=== PATIENT | male | born 1935 | race Caucasian/White ===

== ENCOUNTER 2018-05-24 16:39 | Inpatient (IN) | payer OTHER ==
[~2018-05-24] VITALS: Ht 172.7 cm; Wt 77.6 kg
[2018-05-24 16:39] VITALS: BP 140/76
[~2018-05-24 16:39] MED LIST: ADVAIR 250-501 EACH INH; ASPIRIN EC325 M1 PO; AVELOX 400 MG400 M1 PO; FLEXERIL PO; LISINOPRIL20 MG PO; LORTAB 5-500 T1 EAC1 PO; LOVASTAT40 PO; METOPROLOL SUCC25 M1 PO; PERCOCET 5-3251 EACH PO
[2018-05-24 17:30] LABS: ANION GAP 12 mmol/L (7-16); BUN 58 mg/dL (7-18); CALCIUM 9.2 mg/dL (8.5-10.1); CHLORIDE 101 mmol/L (98-107); CO2 21 mmol/L (21-32); CREATININE 1.7 mg/dL (0.7-1.3); GLUCOSE 100 mg/dL (74-106); SODIUM 134 mmol/L (136-145)
[2018-05-24 17:40] LABS: SGOT 14 U/L (15-37); SGPT 26 U/L (30-65); TOTAL BILIRUBIN 0.4 mg/dL (<0.1-1.0); TOTAL PROTEIN 6.5 g/dL (6.4-8.2); TROPONIN-I <0.06 ng/mL (<0.06)
[2018-05-24 17:56] LABS: ABSOLUTE NEUTROPHILS 4.5 thou/uL (1.4-8.2); BASOPHILS 0.3 % (0.0-2.0); HEMATOCRIT 43.8 % (42.0-52.0); LYMPHOCYTES 17.5 % (24.0-44.0); MCH 31.3 pg (26.0-34.0); MCHC 34.2 g/dL (28.0-37.0); MCV 91.5 fL (80.0-100.0); MONOCYTES 0.8 % (1.0-8.0); PLATELET COUNT 125 thou/uL (150-400); POLYS 79.4 % (36.0-66.0); RBC 4.79 mil/uL (4.50-6.00); RDW 14.4 % (10.5-14.5); WBC 5.7 thou/uL (4.0-11.0)
[2018-05-24 21:03] VITALS: BP 123/70
[2018-05-24 21:20] VITALS: BP 143/83
--- NOTE | 2018-05-24 23:12 | NUR ---
PATIENT WAS A NEW ADMISSION TO THE UNIT THIS SHIFT. HE ARRIVED VIA CART FROM THE ER AND WAS ABLE TO AMBULATE TO BED WITHOUT INCIDENT. PATIENT IS ALERT AND ORIENTED AND ABLE TO CALL APPROPRIATELY FOR NEEDS AND PARTICIPATE IN THE ADMISSION PROCESS. NURSE TO COMPLETE ADMISSION AND INITIATE CARE PLAN.
[2018-05-24 23:55] VITALS: BP 135/85
[2018-05-25 04:06] LABS: HEMATOCRIT 36.6 % (42.0-52.0); HEMOGLOBIN 12.2 gm/dL (14.0-18.0); MCH 30.8 pg (26.0-34.0); MCHC 33.4 g/dL (28.0-37.0); MCV 92.1 fL (80.0-100.0); RBC 3.97 mil/uL (4.50-6.00); RDW 14.1 % (10.5-14.5)
[2018-05-25 04:10] LABS: CALCIUM 7.9 mg/dL (8.5-10.1); CREATININE 1.7 mg/dL (0.7-1.3); POTASSIUM 4.3 mmol/L (3.5-5.1)
[2018-05-25 05:15] VITALS: BP 130/81
[2018-05-25 08:00] VITALS: BP 133/65
[2018-05-25 09:04] VITALS: BP 133/65
--- NOTE | 2018-05-25 09:58 | NUR ---
ASSESSMENT: CM REVIEWED CHART AND MET WITH PATIENT AT THE BEDSIDE. PT IS ALERT AND ORIENTED X4. PT WAS ADMITTED WITH POSSIBLE GI BLEED. PT WAS RECENTLY DIAGNOSED WITH LUNG CA 04/28 AND IS ON CHEMO. PT REPORTS HE SEE DR. ELLIOTT AT [facility] FOR THIS. PT REPORTS HE LIVES IN A HOUSE WITH HIS . PT REPORTS HE IS VERY INDEPENDENT AND IS INDEPENDENT WITH ADLS AND AMBULATION. PT REPORTS THAT HE HAS ABOUT 7 STEPS TO ENTER THIS HOME WITH HANDRAILS ON EACH SIDE. PT REPORTS ABOUT ANOTHER 7 STEPS WITH HANDRAILS TO THE UPPER LEVEL AND SEVEN STEPS WITH HANDRAILS TO THE BASEMENT. PT REPORTS HE HAS NOT HAD HH IN THE PAST. PT REPORTS HE STILL DRIVES. CM DISCUSSED ROLE. PT DOES NOT ANTICIPATE HAVING ANY NEEDS AT DISCHARGE. GI HAS BEEN CONSULTED TO SEE PATIENT. CM WILL CONTINUE TO FOLLOW TO ASSIST NEEDED.
--- NOTE | 2018-05-25 11:55 | NUR ---
Patient left unit for EGD / flex sig around 1115.
[2018-05-25 13:17] VITALS: BP 118/60
--- NOTE | 2018-05-25 15:09 | NUR ---
Assumed care of patient at 0700. Vitals have been stable. Alert and oriented x4. Patient left for EGD / flex-sig today. Some bloody stools with tap water enema before procedure, but otherwise, no bleeding noted. EGD and flex-sig results as charted. Patient to start on IV Protonix BID and Carafate for ulcers. Patient reports feeling better when eating and drinking post - procedure. States burning pain is not as bad as before. Tolerated full liquid diet, will advance for dinner. Patient does report weakness, up with one assist. Fall precautions in place and calls appropriately. [place] per Dr. Melendez to transfer to senior suites. DC telemetry. Report given to RN and patient to transfer to room 224.
[2018-05-25 16:10] VITALS: BP 129/75
[2018-05-25 19:27] VITALS: BP 134/72
--- NOTE | 2018-05-26 03:03 | NUR ---
ASSUMED CARE AT START OF SHIFT PT SITTING UP IN BED , NO CONCERNS VOICED, DENIES PAIN , HAD BOWEL MOVEMENT WITHOUT BLOOD REPORTED. DISCUSSED PLAN OF CARE AND VERBALIZED UNDERTSANDING. RESTED WELL THROUGHOUT HOURLY ROUNDS . IV FLUIDS INFUSING WELL. WILL CONINTUE WITH CURRENT PLAN OF CARE.
[2018-05-26 07:28] VITALS: BP 126/78
[2018-05-26 08:42] LABS: HEMATOCRIT 33.3 % (42.0-52.0); HEMOGLOBIN 11.4 gm/dL (14.0-18.0); MCH 31.9 pg (26.0-34.0); MCHC 34.3 g/dL (28.0-37.0); MCV 93.1 fL (80.0-100.0); RBC 3.58 mil/uL (4.50-6.00); RDW 14.6 % (10.5-14.5); WBC 2.8 thou/uL (4.0-11.0)
[2018-05-26 09:18] LABS: FOLIC ACID 11.3 ng/mL (8.6-58.9)
--- NOTE | 2018-05-26 16:43 | NUR ---
ASSUMED CARE OF PATIENT AT 0715, PATIENT ALERT AND ORIENTED X 4. PATIENT UP AD BALJIT, HAS AMBULATED IN HALLWAY X 1. PATIENT DENIES PAIN. PATIENT HAS LEFT FOREARM IV WITH NS AT 100CC/HR. PATIENT DENIES NAUSEA, CLEAR LIQUID DIET, THIS RN CALLED DR SIMMONS TO ASK ABOUT DIET, PATIENT STATES HE IS HUNGRY, DR SIMMONS STATES KEEP ON CLEAR LIQUID DIET. PATIENT HAS EDEMA TO BILATERAL FEET. PATIENT HAS RIGHT PORT A CATH NOT ASSESSED, FAIRLY NEW PORT AREA, SLIGHT REDNESS TO SITE. WILL CONTINUE TO MONITOR.
[2018-05-26 19:35] VITALS: BP 149/96
--- NOTE | 2018-05-27 05:07 | NUR ---
PATIENT ALERT AND ORIENTED X4. UP ADLIB IN ROOM. C/O PAIN TO BILATERAL HIPS, MEDICATED WITH VICODIN X1 WITH GOOD RESULTS. IVF INFUSING W/O COMPLICATION. NO C/O N/V. LARGE BM AT SHIFT CHANGE WHICH WAS RECORDED. SMALL LOOSE STOOL DURING THE NIGHT. EDEMA REMAINS IN PATIENTS LOWER LEGS AND FEET. WILL MONITOR.
[2018-05-27 06:55] LABS: HEMOGLOBIN 11.5 gm/dL (14.0-18.0)
[2018-05-27 06:57] LABS: HEMATOCRIT 33.8 % (42.0-52.0); MCH 31.7 pg (26.0-34.0); MCHC 34.1 g/dL (28.0-37.0); RBC 3.63 mil/uL (4.50-6.00); RDW 14.5 % (10.5-14.5)
[2018-05-27 07:09] LABS: WBC 1.4 thou/uL (4.0-11.0)
[2018-05-27 09:05] VITALS: BP 149/81
--- NOTE | 2018-05-27 17:02 | NUR ---
ASSUMED CARE OF PATIENT AT 0715, PATIENT ALERT AND ORIENTED X 4. UP AD BALJIT, AMULATES IN HALLWAYS X 2 TODAY. PATIENT DENIES PAIN BUT C/O DISCOMFORT WITH THROAT, NOTIFIED DR SIMMONS RECEIVED ORDER FOR CEPACOL LOZENGES. PATIENT ALSO C/O PAIN AT PORT A CATH SITE RIGHT CHEST, CHEST XRAY DONE. PATIENT HAS LEFT AC IV IN PLACE, NS IV FLUIDS HAVE BEEN DISCONTINUED. PATIENT UPGRADED TO REGULAR DIET, NO C/O NAUSEA THIS SHIFT. PATIENT HAS SOME EDEMA TO BILATERL FEET/ANKLES 1+. PATIENT HAD A SMALL STOOL, NO BLOOD NOTED. PATIENT MAY DISCHARGE TOMORROW TO HOME PER DR SIMMONS. WILL CONTINUE TO MONITOR.
[2018-05-27 19:23] VITALS: BP 174/95
[2018-05-27 20:47] VITALS: BP 146/87
--- NOTE | 2018-05-28 03:44 | NUR ---
PATIENT ALERT AND ORIENTED X4. UP ADLIB IN ROOM. MEDICATED FOR BILATERAL HIP PAIN X1. C/O SORE THROAT, USING LOZENGES PRN. NO C/O ABDOMINAL DISCOMFORT. NO N/V. REDNESS TO PORTAL SITE, HOWEVER, NO DRAINAGE NOTED. PATIENT STATES THAT HE HAS "CAUGHT A COLD". ANXIOUS TO GO HOME. IV PATENT. RESULTS FROM CXR AVAILABLE. WILL CONTINUE TO MONITOR.
[2018-05-28 06:40] LABS: HEMOGLOBIN 11.6 gm/dL (14.0-18.0); MCH 30.5 pg (26.0-34.0)
[2018-05-28 06:42] LABS: HEMATOCRIT 34.8 % (42.0-52.0); MCHC 33.2 g/dL (28.0-37.0); MCV 91.9 fL (80.0-100.0); RBC 3.78 mil/uL (4.50-6.00); RDW 14.1 % (10.5-14.5)
[2018-05-28 07:26] LABS: WBC 1.2 thou/uL (4.0-11.0)
[2018-05-28 08:15] VITALS: BP 134/83
[2018-05-28] MEDS ORDERED: CARAFATE 1 GM TA1 G1 PO (08:51)
[2018-05-28] MEDS ORDERED: PROTONIX40 M1 PO (08:52)
[2018-05-28] MEDS ORDERED: LEVAQUIN 500 M500 M2 PO (09:00)
[2018-05-28 09:30] VITALS: BP 134/83
--- NOTE | 2018-05-28 10:58 | NUR ---
ASSUMED PT CARE AT 0700H. PT A&O X4. PT HAS NO S/S OF DISTRESS. PT HAS PORT-A-CATH TRANSPARENT DRG C/D/I FOR CHEMO ACCESS. PT STATES HAD BM TODAY. PT STATES WAS NORMAL. PT STATES NO RECTAL BLEEDING. PT TOLERATED MEDS AND MEALS. PARTICK FROM LAB CALLED ON CRITICAL. PHYSICIAN NOTIFIED. PER PHYSICIAN VISIT, NEW ORDERS TO DC PT HOME. PT CURRENTLY DC HOME WHEELED ON WHEELCHAIR WITH HELP FROM VOLUNTEER WITH ALL PERSONAL BELONGINGS.
[2018-05-28 11:06] VITALS: BP 134/83
--- NOTE | 2018-05-29 09:10 | PATH ---
[facility] [address] [place] [address] PATHOLOGY RPT PROCEDURE Name: MICHAEL CLIFFORD Room #: 224-P [facility] IN M.R.#: [id number] Admission: 05/24/18 Date of : 34 Discharge: 05/28/18 Report #: [id number] Path Case #: [id number] [facility] Accession Number: [id number] . 01 Material submitted: . PART A: BIOPSY OF SMALL BOWEL PART B: GASTRIC BIOPSY RANDOM PART C: BIOPSY OF ESOPHAGUS PART D: RANDOM COLONIC BIOPSY . 01 Clinical history: . Pre-OP DX: Rectal bleeding, odynophagia Post-OP DX: Esophagitis, duodenitis, colitis . 02 Diagnosis: A. Small intestinal mucosa "biopsy of small bowel": - Mild to moderate acute ileitis with lamina propria revealing abundant eosinophils. - The villous pattern does not appear to be blunted. - Immunoperoxidase stain for CMV will be done and an additional report will follow. . B. Gastric biopsy "gastric biopsy random": - Mild chronic reactive gastropathy. - Immunoperoxidase stain for H. pylori is negative. . C. Squamous mucosa "biopsy of esophagus": - Reflux esophagitis with reactive squamous mucosa. - There is no evidence of goblet cell metaplasia, dysplasia or malignancy. - The GMS stain for fungus will be done, an additional report will follow. . D. Colonic mucosa "random colon biopsy": - Focal acute cryptitis with hyalinized stroma and with small glands. - These findings suggest ischemic colitis. - Suggest clinical correlation. [facility]/05/28/2018 . 02 Comment: This case will also be reviewed by another pathologist. . Special stains for cytomegalovirus will be done on block A1 and GMS on tyler C1 and an additional report will follow. (SHA:arianna 05/28/2018) . 02 Electronically signed: . Desmond Mac MD, Pathologist NPI- [id number] [place] [address] PATHOLOGY RPT PROCEDURE Name: MICHAEL CLIFFORD W Room #: 224-P DIS IN M.R.#: [id number] Admission: 05/24/18 Date of : 34 Discharge: 05/28/18 Report #: [id number] Path Case #: [id number] . 01 Gross description: . A. Received in formalin labeled "Michael Clifford, BX small bowel, rule out infectious or medication-induced ulcers," are 5 segments of benson soft tissue measuring 1.1 x 0.7 x 0.2 cm in aggregate dimensions and ranging from 0.1 to 0.3 cm in maximum dimension. The specimen is submitted entirely in cassette A1. . B. Received in formalin labeled "Clifford, [place], gastric BX-, random, rule out H. pylori," are 3 segments of benson soft tissue measuring 1.3 x 0.6 x 0.2 cm in aggregate dimensions and ranging from 0.4 to 0.7 cm in maximum dimension. The specimen is submitted entirely in cassette B1. . C. Received in formalin labeled "Clifford, [place], BX of esophagus, rule out infectious or medication-induced ulcer," are 4 segments of benson soft tissue measuring 1.6 x 0.5 x 0.2 cm in aggregate dimensions and ranging from 0.3 to 0.6 cm in maximum dimension. The specimen is submitted entirely in cassette C1. . D. Received in formalin labeled "Clifford, [place], random colonic BX, rule out infectious or med-induced colitis," are 4 segments of benson soft tissue measuring 1.3 x 0.5 x 0.2 cm in aggregate dimensions and ranging from 0.3 to 0.4 cm in maximum dimension. The specimen is submitted entirely in cassette D1. (TSD; 05/25/2018) TOB/TOB . 02 Pathologist provided ICD-10: K52.9, K31.9, K21.0 . 02 CPT . 212287, 880456, 256783, 193969 Specimen Comment: A courtesy copy of this report has been sent to Specimen Comment: [phone], , . Specimen Comment: Report sent to ,DR SIMMONS / DR YI Specimen Comment: A duplicate report has been generated due to demographic updates. Performed at: [address], [place] [id number] MD Pete Galo MD Phone: [phone] Performed at: [address] [id number] MD Kari Morales MD Phone: [phone]
== END 2018-05-28 10:30 | disposition home or self-care (01) | DRG 380 ==
LOC: ER 16:39 → EROBS 18:25 → 3W 18:25 → SICU 05-25 16:12 → ENTRNSPT 05-28 10:38 → EDTRNSPTSTS 05-28 10:40
PROVIDERS: Internal Medicine Gastroenterology; Nurse Practitioner Family; Physician Assistant; ADMIT Hospitalist
DX: K22.11 Ulcer of esophagus with bleeding (principal); E43 Unspecified severe protein-calorie malnutrition; N17.9 Acute kidney failure, unspecified; E46 Unspecified protein-calorie malnutrition; C34.90 Malignant neoplasm of unspecified part of unspecified bronchus or lung; K52.9 Noninfective gastroenteritis and colitis, unspecified; K57.31 Diverticulosis of large intestine without perforation or abscess with bleeding; K25.4 Chronic or unspecified gastric ulcer with hemorrhage; K26.4 Chronic or unspecified duodenal ulcer with hemorrhage; K29.81 Duodenitis with bleeding; Z95.5 Presence of coronary angioplasty implant and graft; E78.5 Hyperlipidemia, unspecified; Z60.2 Problems related to living alone; R13.10 Dysphagia, unspecified; D72.819 Decreased white blood cell count, unspecified; I25.10 Atherosclerotic heart disease of native coronary artery without angina pectoris; I12.9 Hypertensive chronic kidney disease with stage 1 through stage 4 chronic kidney disease, or unspecified chronic kidney disease; N18.9 Chronic kidney disease, unspecified; Z92.21 Personal history of antineoplastic chemotherapy; Z87.891 Personal history of nicotine dependence; Z79.82 Long term (current) use of aspirin; Z79.899 Other long term (current) drug therapy; Z68.26 Body mass index [BMI] 26.0-26.9, adult; Z80.1 Family history of malignant neoplasm of trachea, bronchus and lung
CPT/HCPCS: 10879; 15002; 62110; 62900; 70005

== ENCOUNTER 2018-06-08 12:51 | Inpatient (IN) | payer OTHER ==
[~2018-06-08] VITALS: Ht 172.7 cm; Wt 78.0 kg
[~2018-06-08 12:51] MED LIST changes: +CARAFATE 1 GM TA1 G1 PO; +LEVAQUIN 500 M500 M2 PO; +PROTONIX40 M1 PO
[2018-06-08 12:54] VITALS: BP 174/91
--- NOTE | 2018-06-08 12:55 | NUR ---
PT LAST CHEMO X3 WEEKS AGO, SEEN ONCOLOGIST YESETERDAY AND STATES THAT THE SOA MAY BE R/T ANEMIA
[2018-06-08 13:23] LABS: ABSOLUTE NEUTROPHILS 4.9 thou/uL (1.4-8.2); BASOPHILS 0.7 % (0.0-2.0); EOSINOPHILS 0.6 % (0.0-3.0); HEMATOCRIT 33.9 % (42.0-52.0); HEMOGLOBIN 11.4 gm/dL (14.0-18.0); LYMPHOCYTES 16.4 % (24.0-44.0); MCH 30.2 pg (26.0-34.0); MCHC 33.6 g/dL (28.0-37.0); MCV 89.7 fL (80.0-100.0); PLATELET COUNT 261 thou/uL (150-400); POLYS 73.3 % (36.0-66.0); RBC 3.77 mil/uL (4.50-6.00); RDW 14.6 % (10.5-14.5); WBC 6.7 thou/uL (4.0-11.0)
[2018-06-08 13:34] LABS: BE(vivo) 2.6 mmol/L (-2 to +3); HCO3 25.1 mmol/L (22.0-26.0); PCO2 32.3 mmHg (35.0-45.0); PO2 72.6 mmHg (80.0-100.0); pH 7.508 (7.360-7.450)
[2018-06-08 13:36] LABS: ANION GAP 13 mmol/L (7-16); BUN 27 mg/dL (7-18); CALCIUM 8.8 mg/dL (8.5-10.1); CHLORIDE 102 mmol/L (98-107); CO2 24 mmol/L (21-32); CREATININE 1.8 mg/dL (0.7-1.3); GLUCOSE 172 mg/dL (74-106); POTASSIUM 3.7 mmol/L (3.5-5.1); SODIUM 139 mmol/L (136-145)
--- NOTE | 2018-06-08 13:36 | EKG ---
[place] [address] [address] [facility] [place] [address] ELECTROCARDIOGRAM REPORT Name: MICHAEL SCOTT Room #: [facility]#: [id number] ������������������ Admission: ������������������ Attend Phys: Discharge: ������������������ Date of : 34 Report #: [id number] ����������������������������������������������������������������� [id number] THIS REPORT FOR: //name// [facility] ED Test Date: 2018-06-08 Test Time: 13:00:18 Pat Name: MICHAEL TYLER Department: Room: Gender: M Cap Parts Cutter: WG : 1935 Requested By: Jennifer Simons Order Number: [id number] MD: Rodrick Landers Measurements Intervals [place] Rate: 107 P: 72 [place]: 221 QRS: -10 QRSD: 85 T: 135 QT: 312 QTc: 417 Interpretive Statements Sinus tachycardia Prolonged [place] interval early transition Probable LVH with secondary repol abnrm Compared to ECG 11/15/2012 21:30:23 First degree AV block now present Electronically Signed On 06-08-2018 13:36:14 DIRT SUPERVISOR by Rodrick Landers [email or web address] ��������������������������������������������� <ELECTRONICALLY SIGNED> ���������������������������������������� By: Rodrick Landers MD ��������������������������������������������� 06/08/18 1336 1300 Aguila Landers MD /EPI
[2018-06-08 13:41] LABS: ALBUMIN 2.9 g/dL (3.4-5.0); SGOT 16 U/L (15-37); SGPT 22 U/L (30-65); TOTAL BILIRUBIN 0.3 mg/dL (<0.1-1.0); TOTAL PROTEIN 7.2 g/dL (6.4-8.2); TROPONIN-I <0.06 ng/mL (<0.06)
[2018-06-08 17:09] VITALS: BP 145/80
[2018-06-08 18:40] VITALS: BP 145/76
[2018-06-08 18:53] VITALS: BP 176/106
[2018-06-08 20:12] VITALS: BP 155/88
[2018-06-09 04:20] VITALS: BP 158/76
--- NOTE | 2018-06-09 06:01 | NUR ---
A/O, calm and pleasant; vss, afebrile. denied pain, no n/v; got up to the bathroom with standby assist. No sign of soa during the movement, but patient was moving slowly. will keep monitoring.
[2018-06-09 06:23] LABS: HEMATOCRIT 32.2 % (42.0-52.0); HEMOGLOBIN 10.7 gm/dL (14.0-18.0); MCH 30.3 pg (26.0-34.0); MCHC 33.1 g/dL (28.0-37.0); MCV 91.8 fL (80.0-100.0); RBC 3.51 mil/uL (4.50-6.00); RDW 14.7 % (10.5-14.5); WBC 7.1 thou/uL (4.0-11.0)
[2018-06-09 06:44] LABS: CALCIUM 9.1 mg/dL (8.5-10.1); CREATININE 1.9 mg/dL (0.7-1.3); POTASSIUM 4.4 mmol/L (3.5-5.1)
[2018-06-09 08:11] VITALS: BP 138/83
[2018-06-09 13:49] VITALS: BP 157/87
--- NOTE | 2018-06-09 17:48 | NUR ---
Assumed pt care this am, is independent when he ambulates. Has had no episodes of SOB, worked with PT this am and was able to ambulate the halls with no issues. Uses the call light appropriately, tolerating diet well. Pt requested for his home med sucralfate to be restarted. Informed MD , meds restarted. No further issues or concerns identified at this point. Will continue to monitor.
[2018-06-09 19:31] VITALS: BP 145/78
[2018-06-10 04:55] VITALS: BP 143/72
[2018-06-10 06:08] LABS: HEMATOCRIT 29.3 % (42.0-52.0); HEMOGLOBIN 10.1 gm/dL (14.0-18.0); MCH 31.4 pg (26.0-34.0); MCHC 34.6 g/dL (28.0-37.0); MCV 90.7 fL (80.0-100.0); RBC 3.23 mil/uL (4.50-6.00); RDW 14.5 % (10.5-14.5); WBC 5.6 thou/uL (4.0-11.0)
[2018-06-10 06:09] LABS: CALCIUM 8.5 mg/dL (8.5-10.1); CREATININE 1.8 mg/dL (0.7-1.3); MAGNESIUM 1.9 mg/dL (1.8-2.4); POTASSIUM 4.5 mmol/L (3.5-5.1)
--- NOTE | 2018-06-10 07:48 | NUR ---
PROGRESS PT A/O X4, UP AD BALJIT DENIES PAIN. RIGHT CHEST PORT WITH GOOD BLOOD RETURN. REPORTS MOUTH DRY AND CAUSING ANXIETY POPSICLE GIVEN WITH SOME RELIEF. CONTINUE POC.
[2018-06-10 08:10] VITALS: BP 116/60
[2018-06-10 14:44] VITALS: BP 135/62
--- NOTE | 2018-06-10 15:01 | NUR ---
ASSUMED CARE AT 0700. AXOX4. NNO AT THIS TIME. STILL ON IVF. BREATHING TX. ROOM AIR. NO S/S ACUTE DISTRESS NOTED OR REPORTED AT THIS TIME. WILL CONT TO MONITOR FOR ANT CHANGES IN CONDITION.
--- NOTE | 2018-06-10 17:50 | HC ---
[facility] [place] [address] CONSULTATION Name: MICHAEL SCOTT Room #: 463-P ADM IN M.R.#: [id number] Admission: 06/08/18 ������������������ Attend Phys: Cachorro Lazaro MD Discharge: ������������������ Date of : 34 Report #: [id number] THIS REPORT FOR: //name// CC: Cachorro Amaya TYPE OF REPORT: Pulmonary consultation. REFERRING PHYSICIAN: John Eng M.D. REASON FOR REFERRAL: Dyspnea. HISTORY OF PRESENT ILLNESS: The patient is an 82-year-old white male who presents to the Emergency Department with progressive dyspnea. A Pulmonary consultation was requested. The patient was diagnosed with lung cancer in March 2018. He was found to have metastatic lung cancer to both lungs. He has lung nodule/mass in both lungs. Larger mass in the left mid lung and a smaller lung nodule in the right side. He underwent a biopsy on the right lung. Since then, he has undergone radiation therapy along with chemo at [facility]. He is currently on Keytruda along with Taxol and Paraplatin. I believe he is also receiving radiation therapy to the right lung field. He has been doing fairly well until about 1 week prior to presentation when he started to notice progressive dyspnea. Otherwise, he denies any fever, night sweats or chills, chest pain or productive cough. The patient has smoked until March of 2018. He has never been told to have COPD, though he thinks he has been told he has asthma. PAST MEDICAL HISTORY: As mentioned above, lung cancer as above, hypertension, hyperlipidemia, passive tobacco use, coronary artery disease, undergoing stent placement in 2001 and chronic kidney disease. PAST SURGICAL HISTORY: History is otherwise unremarkable. ALLERGIES: None to medications. MEDICATIONS: List reviewed in the MAR. FAMILY HISTORY: Notable for lung cancer in the family. SOCIAL HISTORY: Tobacco as mentioned above. Denies any alcohol use. REVIEW OF SYSTEMS: As mentioned above, otherwise 10-point system review negative. [facility] [address] [place] [address] CONSULTATION Name: MICHAEL SCOTT Room #: 463-P [facility] IN [facility]#: [id number] Admission: 06/08/18 ������������������ Attend Phys: Cachorro Lazaro MD Discharge: ������������������ Date of : 34 Report #: [id number] PHYSICAL EXAMINATION: GENERAL: He is awake and alert, in no apparent distress. VITAL SIGNS: Temperature is 98.3 degrees Fahrenheit, pulse 93, respiratory rate is 17, blood pressure 157/87 mmHg and saturation 95%. HEENT: Normocephalic and atraumatic. NECK: Supple, without any lymphadenopathy or thyromegaly. CHEST: Breath sounds are good without obvious rales or wheezes. CARDIOVASCULAR: Normal S1 and S2. There are no murmurs or gallop. There is no JVD. There is no carotid bruit. Pulses are 2+/4+ bilaterally. ABDOMEN: Soft and nontender. No organomegaly or masses felt. GENITOURINARY: Deferred. RECTAL: Deferred. EXTREMITIES: There is no edema, cyanosis or clubbing. RADIOLOGICAL DATA: Ultrasound of the lower extremities were negative for DVT. Chest x-ray and chest CTs are reviewed showing left lower lobe lung mass, spiculated measuring 2.9 x 2.6 x 2.6 cm, right lower lobe lung nodule measuring 1.4 x 1.3 x 2 cm nodule. No evidence of mediastinal adenopathy, bilateral centrilobular emphysema seen. It is felt to be severe. LABORATORY DATA: Electrolytes are normal except for creatinine of 1.9. WBC 7100, hemoglobin 10.7 and platelets are normal. Albumin 2.9. Arterial blood gas revealed pH 7.50, pCO2 of 32 and pO2 72 mmHg. IMPRESSION: 1. Progressive dyspnea in this 82-year-old white male. He was recently diagnosed with metastatic lung cancer with metastases to the contralateral lung. He is currently undergoing chemotherapy. There is a question of whether the patient is also going through radiation therapy. CT chest shows bullous changes bilaterally along with bilateral lung masses. Suspect chronic obstructive pulmonary disease as a primary cause for the patient's recent onset of dyspnea. If he is getting radiation therapy, early radiation-induced lung injury is also considered. Pulmonary embolus is possible, though felt to be less likely. 2. Chronic obstructive pulmonary disease, bullous emphysema. The patient does not recall being told but based on the CT chest finding and history of tobacco use, clinically appears to have chronic obstructive pulmonary disease. 3. Lung cancer, contralateral metastases, currently undergoing chemotherapy. Question whether he may be also receiving radiation. 4. Chronic kidney disease. 5. Coronary artery disease, prior stent placement in 2001. 6. Hypertension. RECOMMENDATIONS: We would suggest a trial of bronchodilators and lower the [facility] [address] [place] [address] CONSULTATION Name: MICHAEL SCOTT Room #: 463-P [facility] IN M.R.#: [id number] Admission: 06/08/18 ������������������ Attend Phys: Cachorro Lazaro MD Discharge: ������������������ Date of : 34 Report #: [id number] corticosteroids. DVT and GI prophylaxis has been initiated. We will follow closely. Should his hypoxia or dyspnea worsens despite bronchodilator therapy, we will need to pursue venous thromboembolic processes. Thank you for this consultation. ��������������������������������������������� <ELECTRONICALLY SIGNED> ���������������������������������������� By: Kiran Gonzalez MD ��������������������������������������������� 06/10/18 1750 1832 0540 Kiran Gonzalez MD /nt
[2018-06-10 19:05] VITALS: BP 126/76
--- NOTE | 2018-06-10 19:43 | EKG ---
[address] [address] ELECTROCARDIOGRAM REPORT Name: MICHAEL SCOTT Room #: 463- ADM IN M.R.#: [id number] ������������������ Admission: 06/08/18 ������������������ Attend Phys: Cachorro Lazaro MD Discharge: ������������������ Date of : 34 Report #: [id number] ����������������������������������������������������������������� [id number] THIS REPORT FOR: //name// [facility] Test Date: 2018-06-09 Test Time: 11:00:32 Pat Name: MICHAEL SPENCEUIRRE Department: Room: 463 P Gender: M Mission Coordinator: KENDY : 1935 Requested By: Rosalia Hurtado Order Number: [id number] MD: Rodrick Landers Measurements Intervals [place] Rate: 83 P: 0 DE: 213 QRS: -17 QRSD: 80 T: 77 QT: 359 QTc: 422 Interpretive Statements Sinus rhythm prolonged DE interval early transition LVH with secondary repolarization abnormality Compared to ECG 06/08/2018 13:00:18 Sinus tachycardia no longer present Electronically Signed On 06-10-2018 19:43:46 INSPECTOR OPTICAL INSTRUMENT by Rodrick Landers [email or web address] ��������������������������������������������� <ELECTRONICALLY SIGNED> ���������������������������������������� By: Rodrick Landers MD ��������������������������������������������� 06/10/18 1943 1100 1100 Rodrick Landers MD /EPI
[2018-06-11 05:48] VITALS: BP 93/50
[2018-06-11 08:23] VITALS: BP 107/61
--- NOTE | 2018-06-11 08:31 | EKG ---
[address] [address] ELECTROCARDIOGRAM REPORT Name: MICHAEL SCOTT Room #: 463- ADM IN M.R.#: [id number] ������������������ Admission: 06/08/18 ������������������ Attend Phys: Cachorro Lazaro MD Discharge: ������������������ Date of : 34 Report #: [id number] ����������������������������������������������������������������� [id number] THIS REPORT FOR: //name// [facility] Test Date: 2018-06-11 Test Time: 07:36:51 Pat Name: MICHAEL SPENCEUIRRE Department: Room: 463 P Gender: M Death Clearance Coordinator: BS : 1935 Requested By: Rosalia Hurtado Order Number: [id number] MD: Yaniv Gill Measurements Intervals [place] Rate: 92 P: 79 CO: 239 QRS: -13 QRSD: 97 T: 126 QT: 365 QTc: 452 Interpretive Statements Sinus rhythm with PACs Prolonged [place] interval Abnormal R-wave progression, early transition Probable LVH with secondary repol abnrm Compared to ECG 06/09/2018 11:00:32 Electronically Signed On 06-11-2018 8:30:55 JEEP MECHANIC by Yaniv Gill [email or web address] ��������������������������������������������� <ELECTRONICALLY SIGNED> ���������������������������������������� By: Yaniv Gill MD ��������������������������������������������� 06/11/18 0830 0736 Yaniv Gill MD /EPI
--- NOTE | 2018-06-11 09:11 | 2DMMODE ---
[place] [address] [employer] [place] [address] 2 D/M-MODE ECHOCARDIOGRAM Name: MICHAEL SCOTT Room #: 463-P ADM IN M.R.#: [id number] ������������� Admission: 06/08/18 ������������� Attend Phys: Cachorro Lazaro MD Discharge: ��� ������������� ��� Date of : 34 Date of Service: 06/11/18 0911 �� Report #: [id number] �������� ��������������������������������������������[id number] THIS REPORT FOR: //name// APPROVED REPORT Study performed: 06/11/2018 08:34:43 EXAM: Comprehensive 2D, Doppler, and color-flow Echocardiogram Patient Location: Echo lab Room #: 463 Status: routine BSA: 1.92 HR: 86 bpm BP: 93/50 mmHg Rhythm: NSR Other Information Study Quality: Adequate Indications Dyspnea Hx: CAD, stents, COPD, CA, HTN, HLP. 2D Dimensions RVDd: 33.42 mm IVSd: 12.86 (7-11mm) LVOT Diam: 22.46 (18-24mm) LVDd: 40.38 mm PWd: 8.90 (7-11mm) Ascending Ao: 32.90 (22-36mm) LVDs: 24.27 (25-40mm) Aortic Root: 33.28 mm Volumes Left Atrial Volume (Systole) Single Plane 4CH: 53.11 mL Single Plane 2CH: 66.65 mL LA ESV Index: 33.00 mL/m2 Aortic Valve AoV Peak Gilson.: 1.71 m/s AO Peak Gr.: 11.73 mmHg LVOT Max P.19 mmHg LVOT Max V: 1.14 m/s SAJAN Vmax: 2.63 cm2 Mitral Valve MV Decel. Time: 135.84 ms MV E Max Gilson.: 1.51 m/s [facility] [place] [address] [place] [address] 2 D/M-MODE ECHOCARDIOGRAM Name: MICHAEL SCOTT Room #: 463-[facility] IN M.R.#: [id number] ������������� Admission: 06/08/18 ������������� Attend Phys: Cachorro Lazaro MD Discharge: ��� ������������� ��� Date of : 34 Date of Service: 06/11/18 0911 �� Report #: [id number] �������� ��������������������������������������������[id number] IVRT: 55.36 ms Pulmonary Valve PV Peak Gilson.: 0.96 m/s PV Peak Gr.: 3.71 mmHg Pulmonary Vein P Vein S: 0.71 m/s P Vein D: 0.47 m/s P Vein S/D Ratio: 1.51 Tricuspid Valve TR Peak Gilson.: 2.65 m/s RAP Estimate: 5.00 mmHg TR Peak Gr.: 28.01 mmHg PA Pressure: 33.00 mmHg Left Ventricle The left ventricle is normal size. There is normal LV segmental wall motion. Mild basal septal hypertrophy is present. Left ventricular systolic function is normal. LVEF is 60-65%. This study is not technically sufficient to allow evaluation of the LV diastolic function. Right Ventricle The right ventricle is normal size. The right ventricular systolic function is normal. Atria Left atrium is borderline dilated. Right atrium is mildly dilated. Aortic Valve The aortic valve is minimally sclerotic. No aortic regurgitation is present. There is no aortic valvular stenosis. Mitral Valve The mitral valve is normal in structure. Mild mitral regurgitation. No evidence of mitral valve stenosis. Tricuspid Valve The tricuspid valve is normal in structure. Mild tricuspid regurgitation. Estimated PAP is 35 mmHg. Pulmonic Valve The pulmonary valve is normal in structure. Mild pulmonic regurgitation. [facility] [address] [place] [address] 2 D/M-MODE ECHOCARDIOGRAM Name: MICHAEL SCOTT Room #: 463-P [facility] IN M.R.#: [id number] ������������� Admission: 06/08/18 ������������� Attend Phys: Cachorro Lazaro MD Discharge: ��� ������������� ��� Date of : 33 Date of Service: 06/11/18 0911 �� Report #: [id number] �������� ��������������������������������������������[id number] Great Vessels The aortic root is normal in size. The ascending aorta is normal in size. IVC is normal in size and collapses >50% with inspiration. Pericardium There is no pericardial effusion. <Conclusion> Left ventricular systolic function is normal. There is normal LV segmental wall motion. LVEF 60-65%. Both atria are borderline dilated. The aortic valve is minimally sclerotic. No aortic regurgitation or stenosis The mitral valve is normal in structure. Mild mitral regurgitation. Mild tricuspid regurgitation. Estimated pulmonary artery pressure of 35 mmHg. There is no pericardial effusion. ��������������������������������������������� <ELECTRONICALLY SIGNED> ���������������������������������������� By: Donis Pineda MD, [facility] ��������������������������������������������� 06/11/18910 0 0 oDnis Pineda MD, FACC /INF
[2018-06-11 10:17] LABS: HEMATOCRIT 26.5 % (42.0-52.0); HEMOGLOBIN 9.2 gm/dL (14.0-18.0); MCH 31.3 pg (26.0-34.0); MCHC 34.7 g/dL (28.0-37.0); MCV 90.4 fL (80.0-100.0); RBC 2.93 mil/uL (4.50-6.00); RDW 14.7 % (10.5-14.5); WBC 11.6 thou/uL (4.0-11.0)
[2018-06-11 10:27] LABS: CALCIUM 8.8 mg/dL (8.5-10.1); CREATININE 1.7 mg/dL (0.7-1.3); POTASSIUM 3.9 mmol/L (3.5-5.1)
[2018-06-11 14:42] VITALS: BP 125/73
--- NOTE | 2018-06-11 15:28 | NUR ---
ASSUMED CARE 0700. VSS, DENIES PAIN. DENIES SOA. REPORTED TO THIS NURSE EPISODE OF SOA OVERNIGHT. COMPLIANT WITH CARES. SEEN BY CARDIOLOGY, PT,OT, HOSPITALISY. UP AB BALJIT TO BATHROOM, NRS ON TELE. CALLS LIGHT IN REACH. PT VOICED HE WOULD LIKE TO DC HOME TODAY IF EVERYTING CHECKS OUT OKAY.
--- NOTE | 2018-06-11 16:21 | NUR ---
PT ADMITTED RELATED TO DYSPNEA. CM REVIEWED CHART AND SPOKE WITH CARE TEAM. CM MET WITH PT AT BEDSIDE THIS DAY. PT IS A&O X4. CM ROLE INTRODUCED. PT INDICATED HE LIVES IN A HOUSE WITH HIS WITH 6 STEPS TO ENTER 7 STEPS WITH BL HANDRAILS TO BEDROOMS, 7 STEPS TO DEN THEN 5 TO BASEMENT. 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 PT INDICATED NO HH HX AND NO DME. PT INDIACTED HE PLANS TO RETURN HOME ONCE MEDICALLY STABLE. CM TO FOLLOW INDICATED WITH DC PLANNING.
[2018-06-11 20:45] VITALS: BP 168/98
--- NOTE | 2018-06-11 23:51 | NUR ---
TELEMETRY PT IS SPORADICALLY SHOWING A HEART BLOCK ROXANNE PUTNAM NP NOTIFIED NO NEW ORDERS.
[2018-06-12 04:44] VITALS: BP 168/98
[2018-06-12 04:45] VITALS: BP 174/104
[2018-06-12 07:52] VITALS: BP 180/107
--- NOTE | 2018-06-12 08:13 | NUR ---
PROGRESS PT REPORTED ABDOMINAL AND BACK PAIN ORDER FOR PEROCET OBTAINED 10 MG GIVEN WITH EFFECT PT SLEPT REMAINDER OF SHIFT, NO COUGHING OR GASPING FOR AIR NOTED THIS SHIFT, FINE CRACKLES HAVE DISSIPATED VSS ON RA UP AD BALJIT CHEST PORT INTACT WITH GOOD BLOOD RETURN.
[2018-06-12] MEDS ORDERED: ROBITUSSIN100 MG/53 PO (10:58)
[2018-06-12] MEDS ORDERED: ACCUNEB SO1.25 MG/1 INH (10:58)
[2018-06-12] MEDS ORDERED: AMLODIPINE BESYL5 M1 PO (10:58)
[2018-06-12] MEDS ORDERED: METOPROLOL SUCC25 M1 PO (10:58)
[2018-06-12] MEDS ORDERED: ASPIR 8181 MG PO (10:58)
[2018-06-12] MEDS ORDERED: PREDNISONE 20 M20 M1 PO (10:58)
[2018-06-12] MEDS ORDERED: DEEP SEA NASAL44 M1 NASAL (10:58)
[2018-06-12] MEDS ORDERED: MELATONIN5 M1 PO (10:58)
[2018-06-12 11:43] VITALS: BP 180/107
--- NOTE | 2018-06-12 12:04 | NUR ---
ASSUMED CARE AT 0700. AXOX4. HIGH BP ADDRESSED WITH AND . RECEIVED AN ORDER TO D/C HOME WITH MEDS. D/C INSTRUCTIONS AND PRESCRIPTIONS GIVEN TO PT AT BEDSIDE. NO S/S ACUTE DISTRESS NOTED OR REPORTED AT THIS TIME. AWAITING FOR SW FOR NEBULIZER AND DEACCESSING THE R CHEST PORT
--- NOTE | 2018-06-12 15:40 | NUR ---
CARE TEAM INDICATED THAT PT IS MEDICALLY STABLE TO DISCHARGE HOME THIS DAY. CM FAXED ORDER FOR NEBULIZER FOR HOME USE TO [facility]. IT WILL BE DELIVERED TO THE HOME.
== END 2018-06-12 13:28 | disposition home or self-care (01) | DRG 189 ==
LOC: ER 12:51 → EROBS 14:57 → 4W 14:57 → ENTRNSPT 06-12 12:28 → 4W 06-12 13:28
PROVIDERS: Internal Medicine; Physician Assistant; ADMIT Hospitalist
DX: J96.01 Acute respiratory failure with hypoxia (principal); J44.1 Chronic obstructive pulmonary disease with (acute) exacerbation; C34.90 Malignant neoplasm of unspecified part of unspecified bronchus or lung; N17.9 Acute kidney failure, unspecified; K92.2 Gastrointestinal hemorrhage, unspecified; Z60.2 Problems related to living alone; I12.9 Hypertensive chronic kidney disease with stage 1 through stage 4 chronic kidney disease, or unspecified chronic kidney disease; N18.9 Chronic kidney disease, unspecified; E78.5 Hyperlipidemia, unspecified; I25.10 Atherosclerotic heart disease of native coronary artery without angina pectoris; Z95.5 Presence of coronary angioplasty implant and graft; Z87.891 Personal history of nicotine dependence; Z80.1 Family history of malignant neoplasm of trachea, bronchus and lung; Z79.82 Long term (current) use of aspirin; Z79.899 Other long term (current) drug therapy; Z98.49 Cataract extraction status, unspecified eye; Z82.49 Family history of ischemic heart disease and other diseases of the circulatory system
CPT/HCPCS: 10045

== ENCOUNTER 2019-01-31 19:16 | Emergency (ER) | payer OTHER ==
[~2019-01-31] VITALS: Ht 172.7 cm; Wt 84.4 kg
[~2019-01-31 19:16] MED LIST changes: +ACCUNEB SO1.25 MG/1 INH; +AMLODIPINE BESYL5 M1 PO; +ASPIR 8181 MG PO; +DEEP SEA NASAL44 M1 NASAL; +MELATONIN5 M1 PO; +PREDNISONE 20 M20 M1 PO; +ROBITUSSIN100 MG/53 PO
[2019-01-31 20:13] LABS: ABSOLUTE NEUTROPHILS 5.7 thou/uL (1.4-8.2); EOSINOPHILS 4.3 % (0.0-3.0); HEMOGLOBIN 12.6 gm/dL (14.0-18.0); LYMPHOCYTES 15.7 % (24.0-44.0); MCH 29.8 pg (26.0-34.0); MCHC 33.2 g/dL (28.0-37.0); MCV 89.7 fL (80.0-100.0); MONOCYTES 6.7 % (1.0-8.0); PLATELET COUNT 238 thou/uL (150-400); POLYS 72.3 % (36.0-66.0); RBC 4.23 mil/uL (4.50-6.00); RDW 16.7 % (10.5-14.5); WBC 7.9 thou/uL (4.0-11.0)
[2019-01-31 20:21] LABS: ANION GAP 11 mmol/L (7-16); BUN 32 mg/dL (7-18); CALCIUM 9.1 mg/dL (8.5-10.1); CHLORIDE 103 mmol/L (98-107); CO2 23 mmol/L (21-32); CREATININE 1.9 mg/dL (0.7-1.3); GLUCOSE 203 mg/dL (74-106); POTASSIUM 3.7 mmol/L (3.5-5.1); SODIUM 137 mmol/L (136-145)
[2019-01-31 20:31] LABS: ALBUMIN 3.5 g/dL (3.4-5.0); DIRECT BILIRUBIN 0.1 mg/dL (<0.1-0.3); LIPASE 147 U/L (73-393); SGOT 18 U/L (15-37); SGPT 12 U/L (30-65); TOTAL BILIRUBIN 0.5 mg/dL (<0.1-1.0); TOTAL PROTEIN 7.9 g/dL (6.4-8.2); TROPONIN-I <0.06 ng/mL (<0.06)
[2019-01-31] MEDS ORDERED: NEURONTIN 300300 M1 PO (20:40)
[2019-01-31] MEDS ORDERED: DOXYCYCLINE 10100 MG PO (22:18)
[2019-01-31 22:27] VITALS: BP 143/83
--- NOTE | 2019-02-01 08:47 | EKG ---
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: WG : 1935 Requested By: Mati Davidson Order Number: [id number] MD: Donis Pineda Measurements Intervals [place] Rate: 92 P: 0 ME: 254 QRS: -21 QRSD: 87 T: 105 QT: 349 QTc: 432 Interpretive Statements Sinus rhythm Prolonged [place] interval Abnormal R-wave progression, early transition Nonspecific ST segment abnormality Compared to ECG 06/11/2018 07:36:51 atrial premature complexes are no longer present Electronically Signed On 02-01-2019 8:46:46 CDT by Donis Pineda [email or web address] <ELECTRONICALLY SIGNED> By: Donis Pineda MD, [facility] 02/01/19 0846 40 40 Donis Pineda MD, [facility] /EPI
== END 2019-01-31 22:35 | disposition home or self-care (01) ==
LOC: ER 19:16
PROVIDERS: Nurse Practitioner
DX: J44.1 Chronic obstructive pulmonary disease with (acute) exacerbation (principal); R42 Dizziness and giddiness; I12.9 Hypertensive chronic kidney disease with stage 1 through stage 4 chronic kidney disease, or unspecified chronic kidney disease; N18.9 Chronic kidney disease, unspecified; E78.5 Hyperlipidemia, unspecified; I25.10 Atherosclerotic heart disease of native coronary artery without angina pectoris; Z85.118 Personal history of other malignant neoplasm of bronchus and lung; Z87.891 Personal history of nicotine dependence

== ENCOUNTER → 2019-12-06 | Outpatient (CLI) | payer OTHER ==
[~2019-12-06] MED LIST changes: +DOXYCYCLINE 10100 MG PO; +NEURONTIN 300300 M1 PO
== END ==
LOC: SJCVC 13:16
PROVIDERS: ATTEND Internal Medicine Cardiovascular Disease
DX: I25.10 Atherosclerotic heart disease of native coronary artery without angina pectoris (principal); R94.31 Abnormal electrocardiogram [ECG] [EKG]; I44.0 Atrioventricular block, first degree; I10 Essential (primary) hypertension; E78.00 Pure hypercholesterolemia, unspecified; I65.23 Occlusion and stenosis of bilateral carotid arteries; F17.210 Nicotine dependence, cigarettes, uncomplicated; Z79.899 Other long term (current) drug therapy

== ENCOUNTER → 2019-12-12 | Outpatient (CLI) | payer OTHER | LOC: SJCVCIMAG 07:32 | PROVIDERS: ATTEND Internal Medicine Cardiovascular Disease | DX: I65.23 Occlusion and stenosis of bilateral carotid arteries (principal); I08.2 Rheumatic disorders of both aortic and tricuspid valves; I44.0 Atrioventricular block, first degree; I49.3 Ventricular premature depolarization; I25.10 Atherosclerotic heart disease of native coronary artery without angina pectoris; I73.9 Peripheral vascular disease, unspecified; E78.00 Pure hypercholesterolemia, unspecified; I10 Essential (primary) hypertension; F17.210 Nicotine dependence, cigarettes, uncomplicated; Z79.899 Other long term (current) drug therapy ==

== ENCOUNTER 2020-01-17 20:14 | Inpatient (IN) | payer OTHER ==
[~2020-01-17] VITALS: Ht 172.7 cm; Wt 78.7 kg
[2020-01-17 20:18] VITALS: BP 191/93
[2020-01-17 20:50] LABS: ABSOLUTE NEUTROPHILS 9.6 thou/uL (1.4-8.2); BASOPHILS 0.3 % (0.0-2.0); EOSINOPHILS 0.1 % (0.0-3.0); HEMATOCRIT 47.7 % (42.0-52.0); LYMPHOCYTES 7.9 % (24.0-44.0); MCHC 33.5 g/dL (28.0-37.0); MCV 95.4 fL (80.0-100.0); MONOCYTES 4.2 % (1.0-8.0); PLATELET COUNT 208 thou/uL (150-400); POLYS 87.5 % (36.0-66.0); RDW 15.4 % (10.5-14.5)
[2020-01-17 22:36] LABS: ALBUMIN 3.5 g/dL (3.4-5.0); CALCIUM 9.1 mg/dL (8.5-10.1); CREATININE 1.7 mg/dL (0.7-1.3); TOTAL BILIRUBIN 0.3 mg/dL (0.2-1.0); TOTAL PROTEIN 7.7 g/dL (6.4-8.2); TROPONIN-I 0.31 ng/mL (<0.06)
[2020-01-17 22:58] LABS: POTASSIUM 4.2 mmol/L (3.5-5.1)
[2020-01-17 23:43] VITALS: BP 143/70
[2020-01-18] VITALS (7 sets, daily range): BP systolic 100–179; BP diastolic 54–96
--- NOTE | 2020-01-18 01:33 | NUR ---
PT NEW ADMIT 0020 WITH CHEST PAIN. PT PAIN FREE ON ARRIVAL. DENIES NAUSEA VOMITING OR DIARRHEA. SR ON THE MONITOR. UP AD BALJIT. PT ORIENTED TO ROOM AND CALL LIGHT SYSTEM. CONSENT FORMS SIGNED. ADMISSION ASSESSMENTS COMPLETED. PT ADMITTED IN A STABLE CONDITION. WILL CONTINUE TO MONITOR.
[2020-01-18 05:41] LABS: CHOLESTEROL 112 mg/dL (<200); HDL CHOLESTEROL 54 mg/dL (>40); LDL CHOLESTEROL 44 mg/dL (<100); TC:HDL 2.1 Ratio (Not establshd); TRIGLYCERIDE 71 mg/dL (<150); VLDL 14 mg/dL (<40)
[2020-01-18 05:56] LABS: SERUM ASSESSMENT Clear
[2020-01-18 11:04] LABS: HEMATOCRIT 43.9 % (42.0-52.0); HEMOGLOBIN 14.3 gm/dL (14.0-18.0); MCH 31.4 pg (26.0-34.0); MCHC 32.6 g/dL (28.0-37.0); MCV 96.6 fL (80.0-100.0); RBC 4.54 mil/uL (4.50-6.00); RDW 15.7 % (10.5-14.5); WBC 10.4 thou/uL (4.0-11.0)
[2020-01-18 11:11] LABS: PROTIME 10.6 Seconds (9.3-11.4)
[2020-01-18] MEDS ORDERED: PREDNISONE 5 MG5 M1 PO (15:37)
--- NOTE | 2020-01-18 15:40 | NUR ---
ASSUMED CARE AT CHANGE OF SHIFT. ALERT X4, DENIES SOB, CHEST PAIN 1/10 NITRO PAST ON RIGHT CHEST. HEPERIN STARTED PER ORDERS. PLANS FOR CARDIAC CATH ON MONDAY. UP AB BALJIT WITH BATHROOM PRIVLEDGES. CALLS FOR ASSISTANCE.
--- NOTE | 2020-01-18 18:31 | NUR ---
PT RESTING IN BED, REVIEWED HEPARIN GTT AND EXPLAINED REASON FOR IT TO PT, PT AWARE PLAN IS TO DO HEART CATH ON MON, NITRO PASTE TO L CW, PT STARTED PREDNISONE ON MONDAY AND WANTS TO CONTINUE IT DURING THIS HOSPITALIZATION. ADDED TO MED REC AND TOLD DR MUSE ABOUT IT, SHE SAID SHE WOULD REORDER IT.
--- NOTE | 2020-01-18 20:08 | 2DMMODE ---
[facility] [place] [address] 2 D/M-MODE ECHOCARDIOGRAM Name: MICHAEL SCOTT Room #: 210-P [facility] IN [facility]#: [id number] Admission: 01/17/20 Attend Phys: Ervin Stephen MD Discharge: Date of : 34 Report #: [id number] THIS REPORT FOR: cc: Nancy Amaya MD, Michelle R. MD Lammoglia, Francisco J. MD ~ APPROVED REPORT Study performed: 01/18/2020 16:32:08 EXAM: Comprehensive 2D, Doppler, and color-flow Echocardiogram Patient Location: In-Patient Room #: 210 Status: routine BSA: 1.92 HR: 58 bpm BP: 120/80 mmHg Other Information Study Quality: Fair Indications Chest Pain 2D Dimensions RVDd: 28.56 mm IVSd: 11.97 (7-11mm) LVOT Diam: 20.20 (18-24mm) LVDd: 35.98 mm PWd: 12.00 (7-11mm) Ascending Ao: 35.39 (22-36mm) LVDs: 25.04 (25-40mm) Left Atrium: 33.84 (27-40mm) Aortic Root: 26.39 mm LV Single Plane 4CH: 54.56 % LV Single Plane 2CH: 55.80 % Volumes Left Atrial Volume (Systole) Single Plane 4CH: 38.79 mL Single Plane 2CH: 40.26 mL Aortic Valve AoV Peak Gilson.: 1.50 m/s AO Peak Gr.: 9.00 mmHg AO Mean Gr.: 4.78 mmHg AO V2 Mean: 1.03 m/s [facility] [address] [place] [address] 2 D/M-MODE ECHOCARDIOGRAM Name: MICHAEL SCOTT Room #: 210-P [facility]#: [id number] Admission: 01/17/20 Attend Phys: Ervin Stephen MD Discharge: Date of : 34 Report #: [id number] AO V2 VTI: 29.30 cm Mitral Valve E/A Ratio: 0.9 MV Decel. Time: 226.80 ms MV E Max Gilson.: 0.70 m/s MV A Gilson.: 0.79 m/s MV PHT: 65.77 ms Pulmonary Valve PV Peak Gilson.: 0.94 m/s PV Peak Gr.: 3.53 mmHg Tricuspid Valve TR Peak Gilson.: 2.24 m/s TR Peak Gr.: 20.10 mmHg Left Ventricle The left ventricle is normal size. Mild concentric left ventricular hypertrophy. The left ventricular systolic function is normal. The left ventricular ejection fraction is within the normal range. LVEF is >55%. Transmitral Doppler flow pattern suggests impaired LV relaxation. Right Ventricle The right ventricle is normal size. The right ventricular systolic function is normal. Atria The left atrium size is normal. The right atrium size is normal. Aortic Valve The aortic valve is normal in structure. No aortic regurgitation is present. There is no aortic valvular stenosis. Mitral Valve The mitral valve is normal in structure. Trace to mild mitral regurgitation. No evidence of mitral valve stenosis. Tricuspid Valve The tricuspid valve is normal in structure. Mild tricuspid regurgitation. Estimated PAP 23 mmHg. Pulmonic Valve The pulmonary valve is normal in structure. Trace pulmonic regurgitation. [facility] [place] [address] 2 D/M-MODE ECHOCARDIOGRAM Name: SCOTTMICHAEL Room #: 210-P [facility] IN .R.#: [id number] Admission: 01/17/20 Attend Phys: Ervin Stephen MD Discharge: Date of : 34 Report #: [id number] Great Vessels The aortic root is normal in size. IVC is normal in size and collapses >50% with inspiration. Pericardium There is no pericardial effusion. <Conclusion> The left ventricle is normal size. LVEF is >55%. LVEF is >55%. The aortic valve is normal in structure. The mitral valve is normal in structure. Trace to mild mitral regurgitation. The tricuspid valve is normal in structure. Mild tricuspid regurgitation. Estimated PAP 23 mmHg. The pulmonary valve is normal in structure. Trace pulmonic regurgitation. There is no pericardial effusion. <ELECTRONICALLY SIGNED> By: Rodrick Landers MD 01/18/202006 06 06 Rodrick Landers MD /INF
[2020-01-19] VITALS (7 sets, daily range): BP systolic 93–111; BP diastolic 57–72
[2020-01-19 04:36] LABS: HEMATOCRIT 40.8 % (42.0-52.0); HEMOGLOBIN 13.5 gm/dL (14.0-18.0); MCH 31.6 pg (26.0-34.0); MCHC 33.2 g/dL (28.0-37.0); MCV 95.1 fL (80.0-100.0); RBC 4.29 mil/uL (4.50-6.00); RDW 15.8 % (10.5-14.5); WBC 7.9 thou/uL (4.0-11.0)
[2020-01-19 04:52] LABS: CALCIUM 8.6 mg/dL (8.5-10.1); CREATININE 1.8 mg/dL (0.7-1.3); MAGNESIUM 2.1 mg/dL (1.8-2.4); POTASSIUM 4.3 mmol/L (3.5-5.1)
--- NOTE | 2020-01-19 07:55 | NUR ---
PT ALERT AND ORIENTED. VITALS STABLE. DENIES CHEST PAIN, NAUSEA, OR VOMITING. MAINTAINED ON HEPARIN DRIP, CURRENTLY AT 9.98 U/KG/HR APTT AT 58.2. PT ALSO ON NITRO PASTE. DENIES HEADACHE, SOB, OR DIZZINESS. AMBULATES INDEPENDENTLY STEADLY. NO OTHER CONCERNS. OTHER ASSESSMENTS DOCUMENTED. WILL CONTINUE TO MONITOR AND FOLLOW POC.
--- NOTE | 2020-01-19 18:51 | NUR ---
PT'S TO SIDE, ALERTED NURSE THAT PT HAS AN IODINE ALLERGY-"POOR KIDNEY FUNCTION" WILL LET AUTOMOTIVE SERVICES MANAGER KNOW,
[2020-01-20] VITALS (8 sets, daily range): BP systolic 95–128; BP diastolic 54–81
--- NOTE | 2020-01-20 03:24 | NUR ---
Assumed pt care at 1900. Pt is alert and oriented. Pt is ambulatory and steady. No sign of distress noted. Assessment completed and documented. Scheduled meds administered to pt. Tolerated PO intake. Pt is NPO after midnight for cath. No acute events overnight. No further needs at this time.
--- NOTE | 2020-01-20 07:26 | EKG ---
[facility] [place] [address] ELECTROCARDIOGRAM REPORT Name: MICHAEL SCOTT W Room #: 210-P ADM IN M.R.#: [id number] Admission: 01/17/20 Attend Phys: Mahnaz Fischer MD Discharge: Date of : 34 Report #: [id number] THIS REPORT FOR: cc: Nancy Amaya MD, Michelle R. MD Lundgren,Donis Ruiz MD [facility] ~ THIS REPORT FOR: //name// 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: MPALUIS : 1935 Requested By: Katherine Whyte Order Number: [id number] MD: Donis Pineda Measurements Intervals [place] Rate: 69 P: 65 TN: 237 QRS: -14 QRSD: 96 T: 148 QT: 371 QTc: 398 Interpretive Statements Sinus rhythm Prolonged TN interval Abnormal R-wave progression, early transition Nonspecific ST and T wave abnormality Compared to ECG 01/31/2019 19:41:22 Nonspecific change in the ST and T wave segments Electronically Signed On 01-20-2020 7:25:59 CDT by Donis Pineda [email or web address] <ELECTRONICALLY SIGNED> By: Donis Pineda MD, FAC 01/20/20724 24 24 Donis Pineda MD, FAC /EPI
--- NOTE | 2020-01-20 07:29 | EKG ---
[facility] [place] [address] ELECTROCARDIOGRAM REPORT Name: MICHAEL SCOTT Room #: 210-P ADM IN M.R.#: [id number] Admission: 01/17/20 Attend Phys: Mahnaz Fischer MD Discharge: Date of : 34 Report #: [id number] THIS REPORT FOR: cc: Nancy Amaya MD, Michelle R. MD Lundgren,Donis Ruiz MD [facility] ~ THIS REPORT FOR: //name// [facility] Test Date: 2020-01-18 Test Time: 03:57:16 Pat Name: MICHAEL SCOTT Department: Room: 210 P Gender: M Meter Maker: BERTRAM : 1935 Requested By: Ervin Stephen Order Number: [id number] MD: Donis Pineda Measurements Intervals [place] Rate: 63 P: -18 MI: 232 QRS: -16 QRSD: 86 T: 141 QT: 396 QTc: 406 Interpretive Statements Sinus rhythm Prolonged MI interval Abnormal R-wave progression, early transition Nonspecific T wave abnormality Compared to ECG 01/17/2020 20:25:54 No significant changes Electronically Signed On 01-20-2020 7:29:31 CDT by Donis Pineda [email or web address] <ELECTRONICALLY SIGNED> By: Donis Pineda MD, FACC 01/20/20 0729 6 6 Donis Pineda MD, FAC /EPI
--- NOTE | 2020-01-20 07:44 | EKG ---
[facility] [place] [address] ELECTROCARDIOGRAM REPORT Name: MICHAEL SCOTT Room #: 210-P ADM IN M.R.#: [id number] Admission: 01/17/20 Attend Phys: Mahnaz Fischer MD Discharge: Date of : 34 Report #: [id number] THIS REPORT FOR: cc: Nancy Amaya MD,Nancy Pineda,Donis Ruiz MD [facility] ~ THIS REPORT FOR: //name// [facility] Test Date: 2020-01-19 Test Time: 07:30:06 Pat Name: MICHAEL SCOTT Department: Room: 210 P Gender: M Ship Loader: : 1935 Requested By: Stephanie Bangura Order Number: [id number] MD: Donis Pineda Measurements Intervals [place] Rate: 66 P: -19 [place]: 230 QRS: -15 QRSD: 83 T: 64 QT: 405 QTc: 425 Interpretive Statements Sinus rhythm Prolonged [place] interval Abnormal R-wave progression, early transition Borderline T wave abnormalities Compared to ECG 01/18/2020 03:57:16 No significant change was found Electronically Signed On 01-20-2020 7:44:25 CDT by Donis Pineda [email or web address] <ELECTRONICALLY SIGNED> By: Donis Pineda MD, FACC 01/20/2044 9 9 Donis Pineda MD, FACC /EPI
--- NOTE | 2020-01-20 07:45 | EKG ---
[facility] [place] [address] ELECTROCARDIOGRAM REPORT Name: MICHAEL SCOTT Room #: 210-P ADM IN M.R.#: [id number] Admission: 01/17/20 Attend Phys: Mahnaz Fischer MD Discharge: Date of : 34 Report #: [id number] THIS REPORT FOR: cc: Nancy Amaya MD,Nancy Pineda,Donis Ruiz MD [facility] ~ THIS REPORT FOR: //name// [facility] Test Date: 2020-01-19 Test Time: 12:14:44 Pat Name: MICHAEL SCOTT Department: Room: 210 P Gender: M Core Paster: : 1935 Requested By: Ervin Stephen Order Number: [id number] MD: Donis Pineda Measurements Intervals [place] Rate: 65 P: 37 [place]: 243 QRS: -18 QRSD: 89 T: 132 QT: 396 QTc: 412 Interpretive Statements Sinus rhythm Prolonged [place] interval Abnormal R-wave progression, early transition Nonspecific T wave abnormality Compared to ECG 01/19/2020 07:30:06 No significant change was found Electronically Signed On 01-20-2020 7:45:35 CDT by Donis Pineda [email or web address] <ELECTRONICALLY SIGNED> By: Donis Pineda MD, FACC 01/20/20 0745 1214 1214 Donis Pineda MD, FACC /EPI
--- NOTE | 2020-01-20 17:02 | NUR ---
AAOX4. AT BEDSIDE. CARDIAC CATH BY DR. VALLE IMMINENT. BACK AT 1315. VSS. DENIES CP. BEDREST UNTIL 1600. GROIN SITE SOFT, DRY, NONTENDER. SR PER TELE. MOST LIKELY HOME TOMORROW.
--- NOTE | 2020-01-20 18:05 | CATHLAB ---
[facility] [place] [address] INVASIVE PROCEDURE REPORT Name: MICHAEL SCOTT Room #: 210-P ADM IN M.R.#: [id number] Admission: 01/17/20 Attend Phys: Mahnaz Fischer MD Discharge: Date of : 34 Report #: [id number] THIS REPORT FOR: cc: Nancy Amaya MD, Michelle R. MD Mancuso, Gerald M. MD [facility] ~ APPROVED REPORT Study performed: 01/20/2020 10:25:56 Patient Details The patient is a 84 year-old male Event Personnel Jovani Kenney Marine Steward, Cassie Don RTR Scrub, Deanne Cruz RT(R)() Monitor, Marine Neal RN RN, Mindi Iqbal RN RN, Tyesha Au RTR, BYRON Jamesub, Kentrell Norris RTR Monitor Procedures Performed Art Access - R femoral artery* 85368 Initial Mod Sed Same Phys/QHP Gr5y 653486 78866 Mod Sed Same Phys/QHP Ea 672350 Left Heart Cath w/or w/o Coronaries 2649122 [facility] Place w/wo Plasty Single RCA 895976 Hemostasis w/ Mynx Indication Chest pain Procedure Narrative The Right Groin^ was infiltrated with 1% Lidocaine subcutaneous anesthesia. A PINNACLE 6FR Sheath #[id number] sheath was inserted into the RFA^. Coronary angiography was performed using coronary diagnostic catheters. The right coronary system was accessed and visualized with a JRR catheter. The left coronary system was accessed and visualized with a JL4 catheter. The left ventricle was accessed and visualized with a PIGTAIL catheter. Left ventriculogram was performed in 30 degree projection. Closure device was deployed with a 6 Fr MYNX CONTROL 6F/7F L#[id number]. Hemostasis was obtained with manual pressure following sheath removal without any complications. The patient tolerated the procedure well and there were no complications associated with the procedure. There was no hematoma. Intraoperative Conscious Sedation Sedation start time: 1150 Case end Time: [address] [address] INVASIVE PROCEDURE REPORT Name: SID SCOTTLibby You Room #: [address] [place] [address]#: [id number] Admission: 01/17/20 Attend Phys: Mahnaz Fischer, Discharge: Date of : 34 Report #: [id number] 1253 Fentanyl 50 mcg Versed 1 mg Fluoro Time: 12.50 minutes Dose: DAP 79612.80 cGycm2 2449 mGy Contrast Type and Amount: Visipaque 150 ml Hemodynamics The aortic pressure is 142/68 mmHg with a mean of 71 mmHg. The left ventricular pressure is 146/6 mmHg with a mean of mmHg. The left ventricular end diastolic pressure is 18 mmHg. PCI Technique Lesion Percutaneous coronary intervention was performed on the proximal right coronary artery. A LAUNCHER 6FR JR 4 90CM #[id number] Guide Catheter was used to engage the ostium. A Luge Wire .014 x 182CM #[id number] Interventional Guidewire was used to cross the lesion. BALLOON DILATION A Balloon catheter Sprinter OTW 2.25 x 12 #[id number] was inserted and inflated up to 16.00atm for 28seconds. Additional Inflation: 20.00atm for 31seconds. 2.50 X 12 MM NC TREK OTW was inflated to 22 jesse and 28 sec. Additional inflation of 24 jesse and 40 sec. STENT DEPLOYMENT A drug-eluting stent RESOLUTE BILLIE OTW 3.0 X 12 #[id number] was inserted and inflated up to 16.00atm for 31seconds. POST STENT DEPLOYMENT BALLOON DILATION A Balloon catheter TREK NC OTW 3.5 X 8 was inserted and inflated up to 18.00atm for 28seconds. Additional Inflation: 20.00atm for 17seconds. Additional Inflation: 22.00atm for 17seconds. Conclusion #1. Successful PTCA stent of a subtotal highly calcified proximal dominant right coronary stenosis. With multiple guide and wire replacements. Placement of a 3.0 x 12 resolute [place] drug-eluting stent postdilated with a noncompliant balloon to 3.65 VONNIE grade III flow. 70% ostial RCA will follow and moderate diffuse distal disease distal RCA stent remains patent remotely placed. #2 left main mildly calcified widely patent giving rise to LAD and circumflex. #3 the LAD moderately diseased to the apex. It is a type I. [facility] [place] [address] INVASIVE PROCEDURE REPORT Name: MICHAEL SCOTT Room #: 210-P [facility] IN M.R.#: [id number] Admission: 01/17/20 Attend Phys: Mahnaz Fischer, Discharge: Date of : 34 Report #: [id number] #4 circumflex OM arises off the distal aorta or proximal LAD with mild disease somewhat of atypical anatomy but nothing occlusive. A nondominant #5 hyperdynamic left ventricular function EF 65%. Recommendations and plan: Continue aggressive risk factor modification dual antiplatelet therapy initiated. Complex and difficult intervention with significant calcification. But final result excellent. Hemodynamically stable transfer to CCU to follow post stent protocol <ELECTRONICALLY SIGNED> By: Jovani Kenney MD, [facility] 01/20/201803 03 03 Jovani Kenney MD, FACC /INF
[2020-01-20 18:13] LABS: CALCIUM 8.4 mg/dL (8.5-10.1); POTASSIUM 4.3 mmol/L (3.5-5.1)
[2020-01-21] VITALS (7 sets, daily range): BP systolic 96–122; BP diastolic 48–97
[2020-01-21 03:20] LABS: HEMOGLOBIN 12.8 gm/dL (14.0-18.0); MCH 31.4 pg (26.0-34.0); MCHC 32.9 g/dL (28.0-37.0); MCV 95.6 fL (80.0-100.0); RBC 4.08 mil/uL (4.50-6.00); RDW 15.9 % (10.5-14.5); WBC 13.2 thou/uL (4.0-11.0)
[2020-01-21 03:47] LABS: ALBUMIN 2.8 g/dL (3.4-5.0); CALCIUM 8.4 mg/dL (8.5-10.1); CREATININE 2.2 mg/dL (0.7-1.3); POTASSIUM 4.2 mmol/L (3.5-5.1); TOTAL BILIRUBIN 0.3 mg/dL (0.2-1.0); TOTAL PROTEIN 6.3 g/dL (6.4-8.2); TROPONIN-I 0.22 ng/mL (<0.06)
--- NOTE | 2020-01-21 03:55 | NUR ---
Assumed pt care at 2315. Pt is sleeping in bed. No sign of distress noted in pt. Denies any pain. Groin site clean. dry intact. Scheduled meds administered to pt. Discharge pending. Pt wants to go home. Continue to monitor. No acute events overnight. No further needs at this time.
--- NOTE | 2020-01-21 07:35 | EKG ---
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: TRISTON : 1935 Requested By: Gi Mora Order Number: [id number] MD: Minh Rogers Measurements Intervals [place] Rate: 75 P: 47 ND: 312 QRS: -22 QRSD: 94 T: 125 QT: 378 QTc: 423 Interpretive Statements Sinus rhythm Prolonged [place] interval Abnormal R-wave progression, early transition LVH with secondary repolarization abnormality Compared to ECG 01/19/2020 12:14:44 Left ventricular hypertrophy now present Early repolarization now present T-wave abnormality no longer present Electronically Signed On 01-21-2020 7:35:22 CDT by Minh Rogers [email or web address] <ELECTRONICALLY SIGNED> By: Minh Rogers MD, [facility] 01/21/20734 8 8 Minh Rogers MD, [facility] /EPI
[2020-01-21] MEDS ORDERED: PLAVIX 75 MG TA75 M1 PO (08:33)
--- NOTE | 2020-01-21 12:36 | NUR ---
Chart reviewed and discussed with the care team. Pt admitted with nstemi and is s/p cardiac cath. Possible dc to home later today or tomorrow pending his lab work. Pt has been cleared by therapy and was indep, active and driving prior to admission. He lives with his spouse in a split level home with 6 steps to enter and 7 to the den and 5 to the basement. He does not use an assistive device and has been referred to the cardiac rehab program. His pcp is Dr. Nancy Amaya. No cm interventions indicated at this time.
[2020-01-21 16:02] LABS: CALCIUM 8.2 mg/dL (8.5-10.1); CREATININE 1.7 mg/dL (0.7-1.3); POTASSIUM 4.7 mmol/L (3.5-5.1)
[2020-01-21] MEDS ORDERED: PROTONIX 20 MG20 M1 PO (17:20)
--- NOTE | 2020-01-21 20:45 | NUR ---
PT INFORMATION GIVEN ON DIABETIC DIET. PT VERBALIZED UNDERSTANDING.
--- NOTE | 2020-01-22 07:33 | EKG ---
[facility] [place] [address] ELECTROCARDIOGRAM REPORT Name: SCOTTMICHAEL WU Room #: 210-P DIS IN M.R.#: [id number] Admission: 01/17/20 Attend Phys: Mahnaz Fischer MD Discharge: 01/21/20 Date of : 34 Report #: [id number] THIS REPORT FOR: cc: Nancy Amaya MD, Michelle R. MD Santiago, Patrick MD [facility] ~ THIS REPORT FOR: //name// [facility] Test Date: 2020-01-21 Test Time: 18:06:52 Pat Name: MICHAEL SCOTT Department: Room: 210 P Gender: M Simulation Educator: MAN : 1935 Requested By: Jovani Kenney Order Number: [id number] MD: Minh Rogers Measurements Intervals [place] Rate: 66 P: 44 [place]: QRS: -17 QRSD: 96 T: 140 QT: 379 QTc: 398 Interpretive Statements Sinus rhythm SINUS ARRHYTHMIA Abnormal R-wave progression, early transition LVH with secondary repolarization abnormality Compared to ECG 01/21/2020 07:09:29 First degree AV block no longer present Electronically Signed On 01-22-2020 7:33:30 CDT by Minh Rogers [email or web address] <ELECTRONICALLY SIGNED> By: iMnh Rogers MD, FACC 01/22/20 0733 05 05 Minh Rogers MD, [facility] /EPI
== END 2020-01-21 19:15 | disposition home or self-care (01) | DRG 246 ==
LOC: ER 20:14 → 2N 23:31 → EROBS 23:31 → 2N 01-18 00:07
PROVIDERS: Hospitalist; Nurse Practitioner; Nurse Practitioner Adult Health; Nurse Practitioner Family; Student in an Organized Health Care Education/Training Program; ADMIT Internal Medicine; ATTEND Internal Medicine
PROC: 4A023N7 Measurement of Cardiac Sampling and Pressure, Left Heart, Percutaneous Approach (ICD-10-PCS; principal; 2020-01-20)
PROC: 027034Z Dilation of Coronary Artery, One Artery with Drug-eluting Intraluminal Device, Percutaneous Approach (ICD-10-PCS; principal; 2020-01-20)
PROC: B211YZZ Fluoroscopy of Multiple Coronary Arteries using Other Contrast (ICD-10-PCS; principal; 2020-01-20)
PROC: B215YZZ Fluoroscopy of Left Heart using Other Contrast (ICD-10-PCS; principal; 2020-01-20)
DX: I21.4 Non-ST elevation (NSTEMI) myocardial infarction (principal); I50.31 Acute diastolic (congestive) heart failure; K22.10 Ulcer of esophagus without bleeding; N17.9 Acute kidney failure, unspecified; I25.10 Atherosclerotic heart disease of native coronary artery without angina pectoris; N18.30 Chronic kidney disease, stage 3 unspecified; E78.5 Hyperlipidemia, unspecified; R73.9 Hyperglycemia, unspecified; J44.9 Chronic obstructive pulmonary disease, unspecified; F17.210 Nicotine dependence, cigarettes, uncomplicated; K21.9 Gastro-esophageal reflux disease without esophagitis; E53.8 Deficiency of other specified B group vitamins; R73.03 Prediabetes; D72.829 Elevated white blood cell count, unspecified; G47.00 Insomnia, unspecified; I12.9 Hypertensive chronic kidney disease with stage 1 through stage 4 chronic kidney disease, or unspecified chronic kidney disease; Z85.118 Personal history of other malignant neoplasm of bronchus and lung; Z95.5 Presence of coronary angioplasty implant and graft; Z92.21 Personal history of antineoplastic chemotherapy; Z91.041 Radiographic dye allergy status; Z82.49 Family history of ischemic heart disease and other diseases of the circulatory system; Z92.3 Personal history of irradiation; Z79.82 Long term (current) use of aspirin; Z79.899 Other long term (current) drug therapy; Z80.1 Family history of malignant neoplasm of trachea, bronchus and lung; Z71.6 Tobacco abuse counseling
CPT/HCPCS: 10081

== ENCOUNTER → 2020-02-19 | Outpatient (CLI) | payer OTHER ==
[~2020-02-19] MED LIST changes: +PLAVIX 75 MG TA75 M1 PO; +PREDNISONE 5 MG5 M1 PO; +PROTONIX 20 MG20 M1 PO
== END ==
LOC: SJCVC 15:05
PROVIDERS: ATTEND Internal Medicine Cardiovascular Disease
DX: R94.31 Abnormal electrocardiogram [ECG] [EKG] (principal); I13.10 Hypertensive heart and chronic kidney disease without heart failure, with stage 1 through stage 4 chronic kidney disease, or unspecified chronic kidney disease; N18.9 Chronic kidney disease, unspecified; I25.10 Atherosclerotic heart disease of native coronary artery without angina pectoris; E78.00 Pure hypercholesterolemia, unspecified; I65.23 Occlusion and stenosis of bilateral carotid arteries; F17.200 Nicotine dependence, unspecified, uncomplicated

== ENCOUNTER → 2020-06-10 | Outpatient (CLI) | payer OTHER | LOC: SJCVC 14:50 | PROVIDERS: ATTEND Internal Medicine Cardiovascular Disease | DX: I25.10 Atherosclerotic heart disease of native coronary artery without angina pectoris (principal); R94.31 Abnormal electrocardiogram [ECG] [EKG]; E78.00 Pure hypercholesterolemia, unspecified; I65.23 Occlusion and stenosis of bilateral carotid arteries; I13.10 Hypertensive heart and chronic kidney disease without heart failure, with stage 1 through stage 4 chronic kidney disease, or unspecified chronic kidney disease; N18.9 Chronic kidney disease, unspecified; F17.210 Nicotine dependence, cigarettes, uncomplicated; Z79.82 Long term (current) use of aspirin; Z79.899 Other long term (current) drug therapy; Z82.49 Family history of ischemic heart disease and other diseases of the circulatory system ==

== ENCOUNTER 2020-11-14 17:07 | Inpatient (IN) | payer OTHER ==
[~2020-11-14] VITALS: Ht 170.2 cm; Wt 81.7 kg
[2020-11-14 17:31] VITALS: BP 163/79
[2020-11-14 19:09] LABS: HEMATOCRIT 37.7 % (42.0-52.0); HEMOGLOBIN 12.6 gm/dL (14.0-18.0); MCHC 33.5 g/dL (28.0-37.0); MCV 92.5 fL (80.0-100.0); RBC 4.07 mil/uL (4.50-6.00); WBC 8.4 thou/uL (4.0-11.0)
[2020-11-14 19:15] LABS: ANION GAP 12 mmol/L (7-16); BUN 41 mg/dL (7-18); CALCIUM 8.8 mg/dL (8.5-10.1); CHLORIDE 107 mmol/L (98-107); CO2 22 mmol/L (21-32); GLUCOSE 106 mg/dL (74-106); POTASSIUM 4.5 mmol/L (3.5-5.1); SODIUM 141 mmol/L (136-145)
[2020-11-14 19:26] LABS: ALBUMIN 3.4 g/dL (3.4-5.0); SGOT 16 U/L (15-37); SGPT 17 U/L (16-63); TOTAL BILIRUBIN 0.3 mg/dL (0.2-1.0); TOTAL PROTEIN 7.1 g/dL (6.4-8.2); TROPONIN-I <0.06 ng/mL (<0.06)
[2020-11-14 21:46] LABS: INR 0.94; PROTIME 10.3 Seconds (10.5-12.1)
[2020-11-14] MEDS ORDERED: TOPROL XL25 MG PO (23:06)
[2020-11-14] MEDS ORDERED: VITAMIN B-121000 MC2 SUBLING (23:07)
[2020-11-15 03:40] VITALS: BP 156/81
[2020-11-15 04:22] VITALS: BP 147/76
[2020-11-15 05:00] VITALS: BP 140/79
--- NOTE | 2020-11-15 07:39 | NUR ---
PT ARRIVED AT THE UNIT AT 0445. PT IS ALERT AND ORIENTED X4. VS ARE STABLE. PT IS ON 1L NC. PT IS ON HEPARIN DRIP. PT WAS ORIENTED TO THE ROOM AND EDUCATED ON THE USE OF CALL LIGHT AND PT VERBALIZED UNDERSTANDING. BED ON LOWEST LOCKED POSITION [facility] BED ALARM ON AND CALL LIGHT WITHIN REACH.
[2020-11-15 08:00] VITALS: BP 141/66
--- NOTE | 2020-11-15 12:22 | EKG ---
[address] [address] ELECTROCARDIOGRAM REPORT Name: MICHAEL SCOTT Room #: 450- ADM IN M.R.#: [id number] Admission: 11/14/20 Attend Phys: Cachorro Lazaro MD Discharge: Date of : 34 Report #: [id number] [facility] ED Test Date: 2020-11-14 Test Time: 18:58:30 Pat Name: MICHAEL SCOTT Department: Room: [facility] Gender: M Rim Buster: SALENA : 1935 Requested By: Lisbet Castellanos Order Number: [id number] MD: Yaniv Gill Measurements Intervals [place] Rate: 71 P: 10 KS: 319 QRS: -24 QRSD: 86 T: 54 QT: 398 QTc: 433 Interpretive Statements Sinus rhythm Prolonged [place] interval Abnormal R-wave progression, early transition LVH with secondary repolarization abnormality Compared to ECG 01/21/2020 18:06:52 First degree AV block now present Sinus arrhythmia no longer present Electronically Signed On 11-15-2020 12:22:38 CDT by Yaniv Gill [email or web address] <ELECTRONICALLY SIGNED> By: Yaniv Gill MD 11/15/20 1222 57 57 Yaniv Gill MD /EPI
--- NOTE | 2020-11-15 14:24 | NUR ---
Assumed pt care at 7am.Assessment completed .vss.Pt up adlib to bathroom with staedy gait.Meds given as ordered and well tolerated.Heparin gtt in progress. Dr Adler here,order noted. Aptt done at 1330 with no change in gtt rate. The next draw will be in am. Family here to visit,updates given.No verbal c/o. Will continue to monitor.
[2020-11-15 16:00] VITALS: BP 138/64
[2020-11-15 19:25] VITALS: BP 137/72
--- NOTE | 2020-11-16 01:51 | NUR ---
ASSUMED PT CARE AT 1900. PT IS ALERT AND ORIENTED X4.PT IS UP AD BALJIT. PT IS ON 3L NC. PT IS ON HEPARIN DRIP AT 12.97U/K/HR. PT DID NOT C/O SOB OR PAIN.VS ARE WIHIN NORMAL RANGE. MED WERE GIVEN PER EMAR ORDERS. FALL PRECAUTIONS IN WITH CALL LIGHT WITHIN REACH. WILL CONTINUE
[2020-11-16 07:03] VITALS: BP 122/68
[2020-11-16] MEDS ORDERED: PREDNISONE 10 M10 M1 PO (13:11)
[2020-11-16 13:13] VITALS: BP 122/68
--- NOTE | 2020-11-16 13:30 | NUR ---
Assumed pt care at 7am.Pt in bed resting without c/o.Assessment completed.vss. Am meds given with breakfast and well tolerated.Dr Stephen here and dc order noted.Exercise oximetry done prior to dc and pt does not need o2.Dc summary compile and reviewed with pt and .Saline lock dc'd. At 1330,pt dc home per wc accompanied by artist's representative.
--- NOTE | 2020-11-16 13:32 | NUR ---
PT ADMITTED RELATED TO DYSPNEA, CKD, AND LUNG CANCER. CM REVIEWED CHART AND SPOKE WITH CARE TEAM. CM MET WITH PT AND SPOUSE AT BEDSIDE THIS DAY. PT APPEARED TO BE A&O X4. CM ROLE INTRODUCED. PT INDICATED THAT HE RESIDES IN A SPLIT LEVEL HOUSE WITH HIS SPOUSE WITH 6 STEPS TO ENTER 7 STEPS UP AND 5 STEPS DOWN. 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 PT INDICATED HE HAS A NEUBLIZER FOR HOME USE. PT INDICATED NO HOME O2. PT INDICATED NO HH HX. PT INDICATED HE PLANS TO RETURN HOME ONCE MEDICALLY STABLE. O2 OX DONE AND PT DOESN'T QUALIFY FOR HOME O2. PT TO DC HOME TO SELF CARE THIS DAY. NO OTHER CM INTERVENTION INDICATED. CASE CLOSED.
--- NOTE | 2020-11-17 07:09 | HC ---
[facility] [place] [address] CONSULTATION Name: MICHAEL SCOTT Avelino Room #: 450-P [facility] IN M.R.#: [id number] Admission: 11/14/20 Attend Phys: Durga Adler MD Discharge: 11/16/20 Date of : 33 Report #: [id number] THIS REPORT FOR: cc: Nancy Amaya MD,Adam Moulton MD, MD ~ cc: Nancy Amaya MD, Kiran Gonzalez MD, Luis Alfredo Gambino MD DATE OF SERVICE: 11/16/2020 PHYSICIAN REQUESTING CONSULT: Dr. Cachorro Lazaro. REASON FOR CONSULT: History of lung cancer. HISTORY OF PRESENT ILLNESS: The patient is a very pleasant 85-year-old gentleman who was diagnosed with non-small cell lung cancer when a CT of the abdomen showed a lung mass in 03/2018. A biopsy in early 2018 showed moderately differentiated squamous cell carcinoma, PD-L1 positive at 30%. PET scan in early April unfortunately showed bilateral nodules and also hilar adenopathy. The patient began carboplatin, Taxol and pembrolizumab 05/18/2018. He then continued with maintenance Keytruda beginning 08/24/2018. A PET scan in 02/2019 showed oligoprogression of the right lower lung. Because of this he received radiation therapy to that and has continued with stable disease elsewhere. His most recent CAT scan was 10/09/2020. His last Keytruda was 11/03/2020. The patient states he had developed an increase in dyspnea. He can move his air well but just did not feel like it did him as much good. No cough, no fever, no new arm or leg swelling. No diarrhea, no constipation, no bleeding. He does have 19 stairs that he walks up and down to home. He does the laundry and it became more worse than usual. Note that since he has been here, he has had a V/Q that was , also Doppler of his legs that was negative. Pulmonary says he has had an episode like this before. They thought it was an exacerbation of COPD. They began him on steroids. He is feeling much improved. Note that they does have him on oxygen. PAST MEDICAL HISTORY: Notable for the lung cancer since 2019, on therapy. Also, COPD, bullous emphysema, also hyperlipidemia, hypertension, coronary artery disease with prior stents in the past, also chronic kidney disease. SOCIAL HISTORY: He is retired. 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 He has 3 daughters. FAMILY HISTORY: Noncontributory. PHYSICAL EXAMINATION: GENERAL: The patient appears his stated age. [facility] [address] [place] [address] CONSULTATION Name: MICHAEL SCOTT Room #: 450-P [facility] IN M.R.#: [id number] Admission: 11/14/20 Attend Phys: Durga Adler MD Discharge: 11/16/20 Date of : 34 Report #: [id number] VITAL SIGNS: His height at 5 feet 7 inches, 170.2 cm. Weight 180.2 pounds or 81.7 kg. Blood pressure is 122/68. O2 sat 96%, his current oxygen usage is at 3 L, but has been decreased to 2 L as of this morning. Pulse 79, temperature 97.4. FACE: Symmetrical. Speech and thought pattern normal. Moving all extremities. LUNGS: May have some slight rhonchi and cleared with deep breath on the right mid lung. EXTREMITIES: Ankles have some trace edema. SKIN: Consistent with aspirin-type effect with some small ecchymosis. No enlarged lymph nodes in the supraclavicular, cervical, axillary region. HEART: Regular rate. ABDOMEN: Soft, no masses. Slightly obese. LABORATORY RESULTS HERE: Creatinine of 2. Total protein, albumin, total bilirubin, transaminases normal. Baseline INR 0.94. White count here was 8.4, hemoglobin 12.6, platelets 246, nonacute changes. RADIOLOGIC STUDIES: Included the nuclear medicine scan perfusion, which is intermediate probability. Also the ultrasound of venous extremities, bilateral with no sign of clot. ASSESSMENT AND PLAN: 1. 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 2. Possible exacerbation of chronic obstructive pulmonary disease with hypoxia and dyspnea, improved with steroids and oxygen administration. We will defer to others whether to continue the heparin, but most likely could consider stopping it without conclusive evidence of a clot at this time. 3. Chronic kidney disease with creatinine 2. Continue monitoring. 4. Hypertension, per others. 5. Hyperlipidemia, per others. 6. Coronary artery disease, status post stent, per others. ____. CURRENT MEDICINES: Currently include ipratropium and albuterol respiratory therapy q.4 hours while awake, methylprednisolone 40 b.i.d., metoprolol 25 b.i.d., famotidine 20 daily, budesonide respiratory therapy 0.5, gabapentin 300 t.i.d., Tylenol p.r.n., Zofran p.r.n., azithromycin 500 mg daily. He is still on a heparin drip. <ELECTRONICALLY SIGNED> By: Adam Camargo MD 11/17/20708 0732 [id number] Adam Camargo MD /nt
== END 2020-11-16 14:42 | disposition home or self-care (01) | DRG 189 ==
LOC: ER 17:07 → EROBS 21:37 → 4W 21:37
PROVIDERS: Nurse Practitioner Family; ADMIT Internal Medicine; ATTEND Internal Medicine
DX: J96.01 Acute respiratory failure with hypoxia (principal); C34.90 Malignant neoplasm of unspecified part of unspecified bronchus or lung; J70.1 Chronic and other pulmonary manifestations due to radiation; I12.9 Hypertensive chronic kidney disease with stage 1 through stage 4 chronic kidney disease, or unspecified chronic kidney disease; N18.32 Chronic kidney disease, stage 3b; F17.210 Nicotine dependence, cigarettes, uncomplicated; J43.9 Emphysema, unspecified; E53.8 Deficiency of other specified B group vitamins; N40.0 Benign prostatic hyperplasia without lower urinary tract symptoms; I25.10 Atherosclerotic heart disease of native coronary artery without angina pectoris; E78.5 Hyperlipidemia, unspecified; Z20.822 Contact with and (suspected) exposure to COVID-19; Z92.21 Personal history of antineoplastic chemotherapy; Z92.3 Personal history of irradiation; Z79.82 Long term (current) use of aspirin; Z79.899 Other long term (current) drug therapy; Z95.5 Presence of coronary angioplasty implant and graft
CPT/HCPCS: 10045

== ENCOUNTER 2020-11-18 14:54 | Emergency (ER) | payer OTHER ==
[~2020-11-18] VITALS: Ht 172.7 cm; Wt 78.0 kg
[~2020-11-18 14:54] MED LIST changes: +PREDNISONE 10 M10 M1 PO; +TOPROL XL25 MG PO; +VITAMIN B-121000 MC2 SUBLING
[2020-11-18 16:36] VITALS: BP 123/69
[2020-11-18 16:43] LABS: HEMATOCRIT 37.6 % (42.0-52.0); HEMOGLOBIN 12.3 gm/dL (14.0-18.0); MCH 30.6 pg (26.0-34.0); MCHC 32.8 g/dL (28.0-37.0); MCV 93.4 fL (80.0-100.0); PLATELET COUNT 253 thou/uL (150-400); RBC 4.02 mil/uL (4.50-6.00); RDW 15.1 % (10.5-14.5); WBC 11.8 thou/uL (4.0-11.0)
[2020-11-18 16:45] LABS: CALCIUM 8.3 mg/dL (8.5-10.1); CREATININE 2.2 mg/dL (0.7-1.3); POTASSIUM 4.9 mmol/L (3.5-5.1)
[2020-11-18 16:51] LABS: TOTAL BILIRUBIN 0.2 mg/dL (0.2-1.0); TOTAL PROTEIN 7.3 g/dL (6.4-8.2)
[2020-11-18 17:41] LABS: ABSOLUTE NEUTROPHILS 10.5 thou/uL (1.4-8.2)
--- NOTE | 2020-11-20 09:18 | EKG ---
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1935 Requested By: Adebayo Steele Order Number: [id number] MD: Donis Pineda Measurements Intervals Leslie Rate: 80 P: 9 DE: 241 QRS: -22 QRSD: 83 T: 71 QT: 349 QTc: 403 Interpretive Statements Sinus rhythm Prolonged DE interval Abnormal R-wave progression, early transition LVH with secondary repolarization abnormality Compared to ECG 11/14/2020 18:58:30 No significant changes Electronically Signed On 11-20-2020 9:18:10 CDT by Donis Pineda [email or web address] <ELECTRONICALLY SIGNED> By: Donis Pineda MD, [facility] 11/20/2018 10 10 Donis Pineda MD, [facility] /EPI
== END 2020-11-18 17:47 | disposition home or self-care (01) ==
LOC: ER 14:54
PROVIDERS: Emergency Medicine
DX: J44.1 Chronic obstructive pulmonary disease with (acute) exacerbation (principal); E78.5 Hyperlipidemia, unspecified; I25.10 Atherosclerotic heart disease of native coronary artery without angina pectoris; I12.9 Hypertensive chronic kidney disease with stage 1 through stage 4 chronic kidney disease, or unspecified chronic kidney disease; N18.9 Chronic kidney disease, unspecified; Z79.51 Long term (current) use of inhaled steroids; Z79.82 Long term (current) use of aspirin; Z79.899 Other long term (current) drug therapy; Z91.041 Radiographic dye allergy status; Z87.891 Personal history of nicotine dependence

== ENCOUNTER 2020-12-16 20:20 | Observation (INO) | payer OTHER ==
[~2020-12-16] VITALS: Ht 172.7 cm; Wt 78.9 kg
[2020-12-16 20:23] VITALS: BP 137/81
[2020-12-16] MEDS ORDERED: NORCO5 PO (21:21)
[2020-12-16 21:25] LABS: ABSOLUTE NEUTROPHILS 4.3 thou/uL (1.4-8.2); BASOPHILS 1.1 % (0.0-2.0); EOSINOPHILS 5.7 % (0.0-3.0); HEMATOCRIT 37.5 % (42.0-52.0); HEMOGLOBIN 12.2 gm/dL (14.0-18.0); LYMPHOCYTES 17.7 % (24.0-44.0); MCH 30.3 pg (26.0-34.0); MCHC 32.5 g/dL (28.0-37.0); MCV 93.1 fL (80.0-100.0); MONOCYTES 12.5 % (1.0-8.0); PLATELET COUNT 303 thou/uL (150-400); RBC 4.02 mil/uL (4.50-6.00); RDW 15.6 % (10.5-14.5); WBC 6.8 thou/uL (4.0-11.0)
[2020-12-16 21:32] LABS: CALCIUM 8.7 mg/dL (8.5-10.1); CREATININE 2.3 mg/dL (0.7-1.3); POTASSIUM 4.7 mmol/L (3.5-5.1)
[2020-12-16 21:33] LABS: APTT 26.3 Seconds (24.5-32.8); INR 0.91
[2020-12-16 21:43] LABS: ALBUMIN 3.2 g/dL (3.4-5.0); MAGNESIUM 2.5 mg/dL (1.8-2.4); TOTAL BILIRUBIN 0.2 mg/dL (0.2-1.0); TOTAL PROTEIN 7.8 g/dL (6.4-8.2)
[2020-12-16 22:45] LABS: URINE BILIRUBIN NEGATIVE (Negative); URINE BLOOD TRACE (Negative); URINE CLARITY CLEAR; URINE COLOR YELLOW; URINE GLUCOSE-RANDOM* TRACE (Negative); URINE KETONES NEGATIVE (Negative); URINE LEUKOCYTES-REFLEX NEGATIVE (Negative); URINE NITRITE-REFLEX NEGATIVE (Negative); URINE PROTEIN (DIPSTICK) TRACE (Negative); URINE SPECIFIC GRAVITY 1.015 (1.005-1.035); URINE UROBILINOGEN 0.2 E.U./dl (0.2-1.0)
[2020-12-17 00:02] VITALS: BP 148/77
--- NOTE | 2020-12-17 01:33 | NUR ---
PT ARRIVED TO THE UNIT AT APPROXIMATELY 0015 VIA WHEEL CHAIR, FROM ED. PT IS ALERT AND ORIENT TIMES FOUR. UP WITH SBA. BLOOD ELEVATED. AFEBRILE. SR PER MONITOR. DENIES CP. LEFT +1 EDEMA TO LEFT ANKLE. NPO EXCEPT SIPS WITH MEDS. NO SKIN ISSUES EXCEPT MOLES OVER UPPER TORSO. RIGHT CHEST PORT-A-CATH NOTED, NOT ACCESSED TO USE. RIGHT AC FLUSHED, PATENT AND SALINE LOCKED. PT USES 1 LITER OF OXYGEN AT HOME PRN. WILL CONTINUE TO MONITOR. CONSULT FOR DR. VALLE WILL BE NOTIFIED FOR ROUTINE CONSULT.
[2020-12-17 05:30] VITALS: BP 126/70
[2020-12-17 07:13] VITALS: BP 126/67
[2020-12-17 11:30] VITALS: BP 141/78
[2020-12-17 13:45] VITALS: BP 141/78
--- NOTE | 2020-12-17 15:20 | NUR ---
PT RESTING COMFORTABLY IN BED/CHAIR. PT AFEBRILE, ADEQUATE UOP, NO BM, NO DIET ORDER WAS EVER GIVEN FOR THIS PT. PT HAS BEEN THOUROUGHLY UPDATED AND EDUCATED ON PT CONDITION AND POC, PT PROGRESSED TOWARDS POC. PT DC HOME WITH FAMILY APPROX 1400.
--- NOTE | 2020-12-18 12:21 | EKG ---
[address] [place] [address] ELECTROCARDIOGRAM REPORT Name: MICHAEL SCOTT Room #: 205-P [facility]#: [id number] Admission: 12/16/20 Attend Phys: Ervin Stephen MD Discharge: 12/17/20 Date of : 34 Report #: [id number] 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 : 1935 Requested By: Lisbet Castellanos Order Number: [id number] MD: Donis Pineda Measurements Intervals Clark Rate: 82 P: 23 PA: 252 QRS: -24 QRSD: 87 T: 76 QT: 359 QTc: 420 Interpretive Statements Sinus rhythm Prolonged PA interval Abnormal R-wave progression, early transition LVH with secondary repolarization abnormality Compared to ECG 11/18/2020 16:11:13 No significant changes Electronically Signed On 12-18-2020 12:21:32 CDT by Donis Pineda [email or web address] <ELECTRONICALLY SIGNED> By: Donis Pineda MD, [facility] 12/18/20 1221 22 22 Donis Pineda MD, [facility] /EPI
--- NOTE | 2020-12-18 12:28 | EKG ---
[address] [place] [employer] [place] [address] ELECTROCARDIOGRAM REPORT Name: MICHAEL SCOTT Room #: [facility]#: [id number] Admission: 12/16/20 Attend Phys: Ervin Stephen MD Discharge: 12/17/20 Date of : 34 Report #: [id number] [facility] Test Date: 2020-12-17 Test Time: 08:22:21 Pat Name: MICHAEL SCOTT Department: Room: [facility] Gender: M Manager Of Data: GLADIS : 1935 Requested By: Lynda Rey Order Number: [id number] MD: Donis Pineda Measurements Intervals [place] Rate: 72 P: -9 MS: 272 QRS: -27 QRSD: 85 T: 91 QT: 399 QTc: 437 Interpretive Statements Sinus rhythm Prolonged MS interval LVH with secondary repolarization abnormality Baseline wander in lead(s) V2 Compared to ECG 12/16/2020 20:23:06 No significant changes Electronically Signed On 12-18-2020 12:28:22 CDT by Donis Pineda [email or web address] <ELECTRONICALLY SIGNED> By: Donis Pineda MD, [facility] 12/18/20 1228 1 1 Donis Pineda MD, [facility] /EPI
== END 2020-12-17 14:10 | disposition home or self-care (01) ==
LOC: ER 20:20 → EROBS 23:06 → 2N 23:06
PROVIDERS: Nurse Practitioner Family; ADMIT Hospitalist; ATTEND Hospitalist
DX: R07.89 Other chest pain (principal); Z20.822 Contact with and (suspected) exposure to COVID-19; E78.5 Hyperlipidemia, unspecified; I25.10 Atherosclerotic heart disease of native coronary artery without angina pectoris; I12.9 Hypertensive chronic kidney disease with stage 1 through stage 4 chronic kidney disease, or unspecified chronic kidney disease; N18.9 Chronic kidney disease, unspecified; Z79.82 Long term (current) use of aspirin; Z79.02 Long term (current) use of antithrombotics/antiplatelets; Z79.899 Other long term (current) drug therapy; Z91.041 Radiographic dye allergy status; Z87.891 Personal history of nicotine dependence; Z85.118 Personal history of other malignant neoplasm of bronchus and lung

== ENCOUNTER → 2020-12-30 | Outpatient (CLI) | payer OTHER ==
[~2020-12-30] MED LIST changes: +NORCO5 PO
== END ==
LOC: SJCVCIMAG 07:19
PROVIDERS: ATTEND Internal Medicine Cardiovascular Disease
DX: R94.31 Abnormal electrocardiogram [ECG] [EKG] (principal); I08.8 Other rheumatic multiple valve diseases; I25.10 Atherosclerotic heart disease of native coronary artery without angina pectoris; E78.00 Pure hypercholesterolemia, unspecified; I13.10 Hypertensive heart and chronic kidney disease without heart failure, with stage 1 through stage 4 chronic kidney disease, or unspecified chronic kidney disease; N18.9 Chronic kidney disease, unspecified; I65.23 Occlusion and stenosis of bilateral carotid arteries; Z88.8 Allergy status to other drugs, medicaments and biological substances; Z79.899 Other long term (current) drug therapy; Z79.82 Long term (current) use of aspirin; Z87.891 Personal history of nicotine dependence

== ENCOUNTER 2021-04-21 12:40 | Emergency (ER) | payer OTHER ==
[~2021-04-21] VITALS: Ht 170.2 cm; Wt 80.7 kg
--- NOTE | ~2021-04-21 | EMS ---
[address] [address] EMS Patient Care Report Name: MICHAEL SCOTT Room #: DEP [facility]#: [id number] Admission: 04/21/21 Attend Phys: Discharge: 04/21/21 Date of : 34 Report #: [id number] THIS REPORT FOR: //name// Report Transmitted: 04/22/2021 11:11 EMS Care Summary [place], [place]/[facility] Incident [id number] @ 04/21/2021 12:02 Incident Location [address] [place] [address] Patient MICHAEL SCOTT Male, 85 Years 1935 Patient Address [address] [place] [address] Patient History Lung Cancer, Patient Allergies No known allergies, Patient Medications Cephalexin, Chief Complaint tongue numbness Disposition Transported No Lights/[place] Dispatch Reason Allergic Reaction/Stings Transported To [facility] Narrative Medic42 arrived on scene with pumper 42. assest patient clear lung sounds and obtained vitals. assisted to stretcher and transproted to hospital. gcs 15 aox4. patient was calm and collected. assisted patient in hospital by stretcher and tranfered care to [address] [address] EMS Patient Care Report Name: MICHAEL CSOTT Room #: DEP [facility]#: [id number] Admission: 04/21/21 Attend Phys: Discharge: 04/21/21 Date of : 34 Report #: [id number] Initial Vitals @12:16P: 95,BP: 192/78,CO: 3,SpO2: 96, @12:12P: 88,R: 15,BP: 165/78,Pain: 2/10,GCS: 15,SpO2: 99,Revised Trauma: 12, @12:16P: 90,R: 15,BP: 180/77,Pain: 0/10,GCS: 15,SpO2: 96,Revised Trauma: 12, Assessments @12:27MENTAL:No Abnormalities,SKIN:HEENT:Head/Face: No Abnormalities,Neck/Airway: No Abnormalities,LUNG SOUNDS:ABDOMEN:PELVIS//GI:EXTREMITIES:PULSE:NEURO: Impression Allergic Reaction Procedures @12:27 ALS Assessment Response: UnchangedSucceeded Timeline 12:00,Call Received 12:00,Dispatch Notified 12:02,Dispatched 12:02,En Route 12:07,On Scene 12:11,At Patient 12:12,BP: 165/78 M,PULSE: 88,RR: 15 R,SPO2: 99 Ox,ETCO2: ,BG: ,PAIN: 2,GCS: 15, 12:16,BP: 192/78 M,PULSE: 95,RR: R,SPO2: 96 Ox,ETCO2: ,BG: ,PAIN: ,GCS: , 12:16,BP: 180/77 M,PULSE: 90,RR: 15 R,SPO2: 96 Ox,ETCO2: ,BG: ,PAIN: 0,GCS: 15, 12:20,Depart Scene 12:27,ALS Assessment,Response: UnchangedSucceeded, 12:35,At Destination 12:50,Call Closed Disclaimer v1.1 Copyright 2021 [employer] This EMS Care Summary contains data elements from the applicable legal record (which may be displayed differently). It is designed to provide pertinent information for the following purposes: continuity of care, clinical quality, and state data reporting. The complete legal record is available to ED staff and administrators of the receiving hospital in [employer]'s Patient Tracker. All data is provided "as is."
[2021-04-21] MEDS ORDERED: MEDROLDOSEPACK PO (14:57)
[2021-04-21] MEDS ORDERED: DOXYCYCLINE 10100 MG PO (14:57)
[2021-04-21 15:23] VITALS: BP 132/74
== END 2021-04-21 15:18 | disposition home or self-care (01) ==
LOC: ER 12:40
DX: T78.40XA Allergy, unspecified, initial encounter (principal); I12.9 Hypertensive chronic kidney disease with stage 1 through stage 4 chronic kidney disease, or unspecified chronic kidney disease; N18.9 Chronic kidney disease, unspecified; E78.5 Hyperlipidemia, unspecified; Z79.899 Other long term (current) drug therapy; Z87.891 Personal history of nicotine dependence; Z91.02 Food additives allergy status; X58.XXXA Exposure to other specified factors, initial encounter

== ENCOUNTER 2021-05-01 09:45 | Emergency (ER) | payer OTHER ==
[~2021-05-01] VITALS: Ht 170.2 cm; Wt 80.7 kg
--- NOTE | ~2021-05-01 | EMS ---
[address] [address] EMS Patient Care Report Name: MICHAEL SCOTT Room #: DEP [facility]#: [id number] Admission: 05/01/21 Attend Phys: Discharge: 05/01/21 Date of : 34 Report #: [id number] THIS REPORT FOR: //name// Report Transmitted: 05/03/2021 14:28 EMS Care Summary [place], [place]/[facility] Incident [id number] @ 05/01/2021 09:14 Incident Location [id number] [place] [address] Patient MICHAEL SCOTT Male, 85 Years 1935 Patient Address Patient History Hypertension (HTN),Bone Cancer,Lung Cancer,Sleep Apnea, Patient Allergies No known allergies, Patient Medications Cyclobenzaprine, Lovastatin, Clopidogrel, Gabapentin, Oxycodone, Metoprolol, Magnesium Salicylate, Chief Complaint Back pain Disposition Transported No Lights/[place] Dispatch Reason Falls Transported To [facility] Narrative Arrived to meet P28 on scene with the patient. Patient reported that he had woken up earlier in the morning unable to sit up in bed due to back pain. Patient stated his had attempted to help the patient in standing and going to the bathroom. Due to the back pain patient was unable to stand completely and "slowly slid down to the floor." Patient stated he had 10/10 back pain, [address] [place] [address] EMS Patient Care Report Name: MICHAEL SCOTT Room #: DEP [facility]#: [id number] Admission: 05/01/21 Attend Phys: Discharge: 05/01/21 Date of : 34 Report #: [id number] location noted under assessment tabs. Patient denied hitting his head, loss of consciousness, chest pain, soa, n/v, or diarrhea. Patient was supine next to the bed upon our arrival. Patient had intact pulse, sensation, and motion of all four extremities. Scoop stretcher used to move the patient from the bedroom to the cot. Vital signs obtained and patient transported and transferred to receiving facility without change in patient condition. Initial Vitals @09:34P: 101,R: 16,BP: 163/68,Pain: 10/10,GCS: 15,SpO2: 96,Revised Trauma: 12, @09:32P: 101,R: 16,BP: 162/69,Pain: 10/10,GCS: 15,SpO2: 96,Revised Trauma: 12, Assessments @09:23MENTAL:Place Oriented,Person Oriented,Time Oriented,Event Oriented,SKIN:HEENT:Head/Face: No Abnormalities,Neck/Airway: No Abnormalities,LUNG SOUNDS:General: No Abnormalities,Left Upper: No Abnormalities,Right Upper: No Abnormalities,Left Lower: No Abnormalities,Right Lower: No Abnormalities,ABDOMEN:General: No Abnormalities,Left Upper: No Abnormalities,Right Upper: No Abnormalities,Left Lower: No Abnormalities,Right Lower: No Abnormalities,PELVIS//GI:No Abnormalities,EXTREMITIES:Left Arm: No Abnormalities,Right Arm: No Abnormalities,Left Leg: No Abnormalities,Right Leg: No Abnormalities,PULSE:NEURO:No Abnormalities, Impression Back Pain Procedures @09:23 ALS Assessment Response: UnchangedSucceeded Timeline 08:59,Call Received 08:59,Dispatch Notified 09:14,Dispatched 09:15,En Route 09:21,On Scene 09:23,At Patient 09:23,ALS Assessment,Response: UnchangedSucceeded, 09:31,Depart Scene 09:32,BP: 162/69 M,PULSE: 101,RR: 16 R,SPO2: 96 Ox,ETCO2: ,BG: ,PAIN: 10,GCS: 15, 09:34,BP: 163/68 M,PULSE: 101,RR: 16 R,SPO2: 96 Ox,ETCO2: ,BG: ,PAIN: 10,GCS: 15, 09:41,At Destination 09:54,Call Closed [address] [address] EMS Patient Care Report Name: MICHAEL SCOTT [facility] [id number] Admission: 05/01/21 Attend Phys: Discharge: 05/01/21 Date of : 34 Report #: [id number] Disclaimer v1.1 Copyright 2021 [employer] This EMS Care Summary contains data elements from the applicable legal record (which may be displayed differently). It is designed to provide pertinent information for the following purposes: continuity of care, clinical quality, and state data reporting. The complete legal record is available to ED staff and administrators of the receiving hospital in [facility]'s Patient Tracker. All data is provided "as is."
[~2021-05-01 09:45] MED LIST changes: +MEDROLDOSEPACK PO
[2021-05-01 10:02] LABS: ABSOLUTE NEUTROPHILS 12.1 thou/uL (1.4-8.2); BASOPHILS 0.2 % (0.0-2.0); HEMATOCRIT 32.8 % (42.0-52.0); HEMOGLOBIN 10.3 gm/dL (14.0-18.0); LYMPHOCYTES 1.9 % (24.0-44.0); MCH 27.7 pg (26.0-34.0); MCHC 31.4 g/dL (28.0-37.0); MCV 88.1 fL (80.0-100.0); MONOCYTES 0.9 % (1.0-8.0); PLATELET COUNT 182 thou/uL (150-400); RBC 3.72 mil/uL (4.50-6.00); RDW 19.6 % (10.5-14.5); WBC 12.5 thou/uL (4.0-11.0)
[2021-05-01 10:15] LABS: CALCIUM 8.7 mg/dL (8.5-10.1); CREATININE 2.1 mg/dL (0.7-1.3); POTASSIUM 5.3 mmol/L (3.5-5.1)
[2021-05-01 10:21] LABS: ALBUMIN 2.6 g/dL (3.4-5.0); TOTAL BILIRUBIN 0.7 mg/dL (0.2-1.0); TOTAL PROTEIN 6.4 g/dL (6.4-8.2)
[2021-05-01 12:22] VITALS: BP 152/70
== END 2021-05-01 13:49 | disposition home or self-care (01) ==
LOC: ER 09:45
PROVIDERS: Emergency Medicine
DX: M54.50 Low back pain, unspecified (principal); C34.91 Malignant neoplasm of unspecified part of right bronchus or lung; C80.1 Malignant (primary) neoplasm, unspecified; C79.51 Secondary malignant neoplasm of bone; E78.5 Hyperlipidemia, unspecified; Z85.118 Personal history of other malignant neoplasm of bronchus and lung; I12.9 Hypertensive chronic kidney disease with stage 1 through stage 4 chronic kidney disease, or unspecified chronic kidney disease; N18.9 Chronic kidney disease, unspecified; Z79.51 Long term (current) use of inhaled steroids; Z79.82 Long term (current) use of aspirin; Z79.899 Other long term (current) drug therapy; Z91.041 Radiographic dye allergy status; Z87.891 Personal history of nicotine dependence